=== PATIENT | female | born 1980 | race Caucasian/White ===

== ENCOUNTER 2016-03-16 14:57 | Emergency (ER) | payer MEDICAID, OTHER ==
[2016-03-16] MEDS ORDERED: ACETAMINOPHEN 325 MG TABLET PO ONE (15:14)
--- NOTE | 2016-03-16 15:14 | ER Document Report ---
ED Medical Screen (RME) - General Stated Complaint: KNEE PAIN Time seen by provider: 15:12 Mode of Arrival: Ambulatory Information source: Patient Notes: 36-year-old female presents to ED for left knee after tripping and falling this morning landing on her left knee. States she fell about a month ago on the same knee and the pain was still there. Last menstrual period 02/28/2016 I have greeted and performed a rapid initial assessment of this patient. A comprehensive ED assessment and evaluation of the patient, analysis of test results and completion of medical decision making process will be conducted by an additional ED providers. TRAVEL OUTSIDE OF THE [place] IN LAST 30 DAYS: No - Related Data Allergies/Adverse Reactions: amoxicillin trihydrate [From Augmentin] Allergy (Intermediate, Verified 15:13) Hives aspirin [Aspirin] Allergy (Intermediate, Verified 03/16/16 15:13) DOESN'T TAKE BC OF CROHN'S Potassium Clavulanate * [From Augmentin] Allergy (Intermediate, Verified 15:13) Hives sulfamethoxazole [From Septra] Allergy (Intermediate, Verified 03/16/16 15:13) NAUSEA,VOMITING, HIVES trimethoprim [From Septra] Allergy (Intermediate, Verified 03/16/16 15:13) NAUSEA, VOMITING, HIVES sertraline HCl [From Zoloft] Allergy (Verified 03/16/16 15:13) UNKNOWN POWDER IN GLOVES Adverse Reaction (Intermediate, Uncoded 03/16/16 15:13) RASH Past Medical History - Past Medical History Cardiac Medical History: Denies: Hx Coronary Artery Disease, Hx Heart Attack, Hx Hypertension Pulmonary Medical History: Reports: Hx Asthma - FLARE UPS IN WINTER, Hx Bronchitis - FLARE UPS IN WINTER, Hx Pneumonia Denies: Hx COPD Neurological Medical History: Reports: Hx Migraine. Denies: Hx Cerebrovascular Accident, Hx Seizures - QUESTIONABLE SZ AFTER OF SON IN 2012. Endocrine Medical History: Reports: Hx Hypothyroidism GI Medical History: Reports: Hx Crohn's Disease Musculoskeltal Medical History: Reports Hx Arthritis - OLIVER HANDS Psychiatric Medical History: Reports: Hx Anxiety Past Surgical History: Reports: Hx Appendectomy, Hx Orthopedic Surgery - rt shoulder, Hx Thyroid Surgery - Thyroidectomy. Denies: Hx Section - d&c - Immunizations Hx Diphtheria, Pertussis, Tetanus Vaccination: Yes - 2012
[2016-03-16] MEDS ORDERED: ACETAMINOPHEN 325 MG TABLET ONE (15:15)
[2016-03-16] MEDS ORDERED: LORAZEPAM INJ 2 MG/1 ML VIAL IV ONE (15:55)
[2016-03-16] MEDS ORDERED: NORMAL SALINE 1000 ML 1,000 ML IV ONE (15:55)
--- NOTE | 2016-03-16 15:56 | ER Document Report ---
ED General - General Chief Complaint: Knee Pain Stated Complaint: KNEE PAIN Mode of Arrival: Ambulatory Notes: 36-year-old female here with complaints of left knee pain that started after a fall earlier today. She has had one other fall one month ago. She cannot tell me how she ended up falling but advises that it "happened all of a sudden". She advises she does not know how she got on the floor. She denies slipping on anything. Her mother witnessed the event that the patient is unable to get in touch with the mother on the phone. She does have a history of generalized tonic-clonic seizures in 2013 and states that she was never placed on any antiepileptic medications for this as it was attributed to eclampsia. She has no prior history of drop-attack seizures. No recent medication changes. TRAVEL OUTSIDE OF THE [place] IN LAST 30 DAYS: No - Related Data Allergies/Adverse Reactions: amoxicillin trihydrate [From Augmentin] Allergy (Intermediate, Verified 15:13) Hives aspirin [Aspirin] Allergy (Intermediate, Verified 03/16/16 15:13) DOESN'T TAKE BC OF CROHN'S Potassium Clavulanate * [From Augmentin] Allergy (Intermediate, Verified 15:13) Hives sulfamethoxazole [From Septra] Allergy (Intermediate, Verified 03/16/16 15:13) NAUSEA,VOMITING, HIVES trimethoprim [From Septra] Allergy (Intermediate, Verified 03/16/16 15:13) NAUSEA, VOMITING, HIVES sertraline HCl [From Zoloft] Allergy (Verified 03/16/16 15:13) UNKNOWN POWDER IN GLOVES Adverse Reaction (Intermediate, Uncoded 03/16/16 15:13) RASH Past Medical History - General Information source: Patient - Social History Smoking Status: Current Every Day Smoker Chew tobacco use (# tins/day): No Frequency of alcohol use: None Drug Abuse: None Family History: Reviewed & Not Pertinent Patient has suicidal ideation: No Patient has homicidal ideation: No - Past Medical History Cardiac Medical History: Denies: Hx Coronary Artery Disease, Hx Heart Attack, Hx Hypertension Pulmonary Medical History: Reports: Hx Asthma - FLARE UPS IN WINTER, Hx Bronchitis - FLARE UPS IN WINTER, Hx Pneumonia Denies: Hx COPD Neurological Medical History: Reports: Hx Migraine. Denies: Hx Cerebrovascular Accident, Hx Seizures - QUESTIONABLE SZ AFTER OF SON IN 2012. Endocrine Medical History: Reports: Hx Hypothyroidism Renal/ Medical History: Denies: Hx Peritoneal Dialysis GI Medical History: Reports: Hx Crohn's Disease Musculoskeltal Medical History: Reports Hx Arthritis - OLIVER HANDS Psychiatric Medical History: Reports: Hx Anxiety Past Surgical History: Reports: Hx Appendectomy, Hx Orthopedic Surgery - rt shoulder, Hx Thyroid Surgery - Thyroidectomy. Denies: Hx Section - d&c - Immunizations Hx Diphtheria, Pertussis, Tetanus Vaccination: Yes - 2012 Review of Systems - Review of Systems Notes: See history of present illness for pertinent positive review of systems; otherwise all review of systems have been reviewed and are negative Physical Exam - Vital signs Vitals: Temp Pulse Resp BP Pulse Ox 98.0 F 78 19 126/74 H 97 03/16/16 15:13 03/16/16 15:13 03/16/16 15:13 03/16/16 15:13 03/16/16 15:13 - Notes Notes: PHYSICAL EXAMINATION: GENERAL: Well-appearing and in no acute distress. HEAD: Atraumatic, normocephalic. EYES: Pupils equal round and reactive to light, extraocular movements intact, sclera anicteric, conjunctiva are normal. ENT: nares patent, oropharynx clear without exudates. Moist mucous membranes. NECK: Normal range of motion, supple without lymphadenopathy LUNGS: CTAB and equal. No wheezes rales or rhonchi. HEART: Regular rate and rhythm without murmurs ABDOMEN: Soft, no tenderness. No guarding, no rebound EXTREMITIES: Normal range of motion, no pitting edema. No cyanosis. NEUROLOGICAL: Cranial nerves grossly intact. Normal sensory/motor exams. Normal steady gait without ataxia. PSYCH: Normal mood, normal affect. SKIN: Warm, Dry, normal turgor, no rashes or lesions noted Course - Re-evaluation Re-evalutation: 03/16/16 16:10 MEDICAL DECISION MAKING: Concern for drop attack seizures versus syncope versus mechanical fall Given the history, it is conceivable that the patient is having drop attack seizures We'll obtain workup including electrolytes and TSH Will also give a dose of Ativan to prevent any further possible seizures Patient understands and agrees to the plan of care 03/16/16 18:37 Results reviewed and are unremarkable I discussed results with patient Instructed her to follow up with neurology We'll send her home with prescription for tramadol for knee pain She understands and agrees to plan of care - Vital Signs Vital signs: Temp Pulse Resp BP Pulse Ox 98.0 F 78 19 126/74 H 97 03/16/16 15:13 03/16/16 15:13 03/16/16 15:13 03/16/16 15:13 03/16/16 15:13 - Laboratory Result Diagrams: 03/16/16 16:20 03/16/16 16:20 Laboratory results interpreted by me: 03/16/16 16:20 RDW 14.1 H Discharge - Discharge Clinical Impression: Fall, accidental Qualifiers: Encounter type: initial encounter Qualified Code(s): W19.XXXA - Unspecified fall, initial encounter Condition: Good Disposition: HOME, SELF-CARE Prescriptions: Tramadol HCl 50 mg PO BIDP PRN #14 tablet PRN Reason: Referrals: SHIKHA FREITAS MD [ACTIVE STAFF] - Follow up in 3-5 days ROBERTO BAILEY MD [Primary Care Provider] - Follow up in 3-5 days
[2016-03-16 16:42] LABS: ABSOLUTE EOSINOPHILS # (AUTO) 0.1 10^3/uL (0.0-0.6); ABSOLUTE MONOCYTES (AUTO) 0.4 10^3/uL (0.1-1.4); ABSOLUTE NEUT (AUTO) 3.5 10^3/uL (1.7-8.2); BASOPHILS % (AUTO) 0.7 % (0-2); HEMATOCRIT 39.8 % (36.0-47.0); HEMOGLOBIN 12.8 g/dL (12.0-15.5); HGB HCT DIFFERENCE -1.4; LYMPHOCYTES % (AUTO) 32.6 % (13-45); MEAN CORPUSCULAR HEMOGLOBIN 29.2 pg (27.0-33.4); MEAN CORPUSCULAR HGB CONC 32.1 g/dL (32.0-36.0); MEAN CORPUSCULAR VOLUME 91 fl (80-97); MONOCYTES % (AUTO) 7.3 % (3-13); RED BLOOD COUNT 4.37 10^6/uL (3.72-5.28); RED CELL DISTRIBUTION WIDTH 14.1 % (11.5-14.0); SEGMENTED NEUTROPHILS % (AUTO) 58.4 % (42-78); WHITE BLOOD COUNT 6.1 10^3/uL (4.0-10.5)
[2016-03-16 17:01] LABS: ALANINE AMINOTRANSFERASE 28 U/L (9-52); ALBUMIN 3.7 g/dL (3.5-5.0); ALKALINE PHOSPHATASE 81 U/L (38-126); ANION GAP 8 (5-19); ASPARTATE AMINO TRANSFERASE 32 U/L (14-36); BILIRUBIN,TOTAL 0.9 mg/dL (0.2-1.3); BLOOD UREA NITROGEN 14 mg/dL (7-20); CALCIUM 8.7 mg/dL (8.4-10.2); CARBON DIOXIDE 27 mmol/L (22-30); CHLORIDE 104 mmol/L (98-107); GLUCOSE 81 mg/dL (75-110); MAGNESIUM 1.9 mg/dL (1.6-2.3); PHOSPHORUS 2.6 mg/dL (2.5-4.5); SODIUM 138.7 mmol/L (137-145); TOTAL PROTEIN 6.8 g/dL (6.3-8.2)
[2016-03-16] MEDS ORDERED: TRAMADOL HCL 50 MG TABLET PO ONE (17:57)
[2016-03-16 18:51] VITALS: BP 128/75
== END 2016-03-16 18:52 | disposition home or self-care (01) ==
LOC: ER 14:57
DX: M25.562 Pain in left knee (principal); W19.XXXA Unspecified fall, initial encounter; F17.210 Nicotine dependence, cigarettes, uncomplicated
CPT/HCPCS: 99283; 96361; 96374; 36415; 83735; 84100; 84443; 85025; 81025; 80053; 73562; J3490; J2060; J7030

== ENCOUNTER 2016-05-29 10:29 | Emergency (ER) | payer SELFPAY ==
[2016-05-29] MEDS ORDERED: OXYCODONE-ACETAMINOPHEN 5-325 MG TABLET PO ONE (11:50)
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
[2016-05-29] MEDS ORDERED: KETOROLAC TROMETHAMINE 60 MG/2 ML SDV IM ONE (13:10)
[2016-05-29 13:33] VITALS: BP 98/62
== END 2016-05-29 13:30 | disposition home or self-care (01) ==
LOC: ER 10:29
DX: M54.31 Sciatica, right side (principal); M54.9 Dorsalgia, unspecified; M79.604 Pain in right leg; R05 Cough; F17.210 Nicotine dependence, cigarettes, uncomplicated
CPT/HCPCS: 99283; 96372; 72110; J1885

== ENCOUNTER 2016-08-03 14:25 | Emergency (ER) | payer MEDICAID ==
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
[2016-08-03] MEDS ORDERED: AZITHROMYCIN 250 MG TABLET PO ONE (17:44)
[2016-08-03] MEDS ORDERED: LIDOCAINE 1% INJ-PF (10 MG/ML) 30 ML SDV INJ ONE (17:44)
[2016-08-03] MEDS ORDERED: CEFTRIAXONE INJ 250 MG VIAL IM ONE (17:44)
[2016-08-03] MEDS ORDERED: EMTRICITABINE/TENOFOVIR 200-300 MG TAB (3 TAB/ER DISP) PO PRN (17:44)
[2016-08-03 18:08] LABS: APPEARANCE,URINE CLOUDY; BILIRUBIN,URINE NEGATIVE (NEGATIVE); GLUCOSE, URINE NEGATIVE (NEGATIVE); KETONES,URINE NEGATIVE (NEGATIVE); LEUKOCYTE ESTERASE,URINE SMALL (NEGATIVE); NITRITE,URINE NEGATIVE (NEGATIVE); PROTEIN,URINE NEGATIVE (NEGATIVE); URINE SPECIFIC GRAVITY 1.006; UROBILINOGEN,URINE NEGATIVE mg/dL (<2.0)
[2016-08-03 18:48] VITALS: BP 120/79
[2016-08-03 18:52] LABS: ADD HIVPANEL? NO; HIV (1 AND 2) ANTIBODY NEGATIVE (NEGATIVE)
[2016-08-03 21:05] LABS: CHLAM PCR NOT DETECTED (NOT DETECT)
== END 2016-08-03 18:49 | disposition home or self-care (01) ==
LOC: ER 14:25
DX: T74.21XA Adult sexual abuse, confirmed, initial encounter (principal); F17.200 Nicotine dependence, unspecified, uncomplicated; Y93.9 Activity, unspecified; Y92.810 Car as the place of occurrence of the external cause
CPT/HCPCS: 99285; 96372; 36415; 87210; 86592; 81001; 86701; 87491; 87591; 80074; Q0144; J3490; J0696

== ENCOUNTER 2016-11-07 15:52 | Emergency (ER) | payer MEDICAID ==
--- NOTE | 2016-11-07 17:15 | ER Document Report ---
ED Extremity Problem, Lower - General Chief Complaint: Foot Pain Stated Complaint: LEFT ANKLE PAIN Time Seen by Provider: 11/07/16 16:50 Mode of Arrival: Wheelchair Information source: Patient Notes: 36-year-old female presents to ED for complaint of left foot pain. She claims that she went to the inventory management specialist today and he gave HER-2 shots in her foot. She states she then drove home and went to bed. When she got up after laying down he stepped down and had excruciating pain in her whole left foot. She states the pain radiates to her ankle and thigh. She states she called the inventory management specialist and he told her to come to the emergency room to get x-ray to see if she had a broken foot. She states that the pain has been in her foot for about 2 months worse when she walks and that is why she went to the inventory management specialist. She states she has a history of RA. She states she has not had any previous x-rays to this foot. She states she does not know of any injuries. She states she is on tramadol that the inventory management specialist gives her for pain. TRAVEL OUTSIDE OF THE [place] IN LAST 30 DAYS: No - HPI Patient complains to provider of: Pain, Swelling Location: Foot Occurred: Other - chronic pain with worse pain today after getting shots in the foot Onset/Duration: Persistent, Worse Quality of pain: Sharp, Throbbing Severity: Severe Pain Level: 5 Recent injury: No Associated symptoms: Painful ambulation Exacerbated by: Nothing Relieved by: Nothing - Related Data Allergies/Adverse Reactions: amoxicillin trihydrate [From Augmentin] Allergy (Intermediate, Verified 14:39) Hives aspirin [Aspirin] Allergy (Intermediate, Verified 08/03/16 14:39) DOESN'T TAKE BC OF CROHN'S Potassium Clavulanate * [From Augmentin] Allergy (Intermediate, Verified 14:39) Hives sulfamethoxazole [From Septra] Allergy (Intermediate, Verified 08/03/16 14:39) NAUSEA,VOMITING, HIVES trimethoprim [From Septra] Allergy (Intermediate, Verified 08/03/16 14:39) NAUSEA, VOMITING, HIVES sertraline HCl [From Zoloft] Allergy (Verified 08/03/16 14:39) UNKNOWN POWDER IN GLOVES Adverse Reaction (Intermediate, Uncoded 08/03/16 14:39) RASH Past Medical History - General Information source: Patient - Social History Smoking Status: Current Every Day Smoker Cigarette use (# per day): Yes - 5 cig Chew tobacco use (# tins/day): No Smoking Education Provided: Yes - less than 1 min Frequency of alcohol use: None Drug Abuse: None Occupation: student Lives with: Family Family History: Arthritis, CAD, CVA, DM, Hyperlipidemia, Hypertension, Malignancy, Thyroid Disfunction Patient has suicidal ideation: No Patient has homicidal ideation: No - Past Medical History Cardiac Medical History: Reports: None Pulmonary Medical History: Reports: Hx Asthma - [employer] IN WINTER, Hx Bronchitis - [employer] IN WINTER, Hx Pneumonia EENT Medical History: Reports: None Neurological Medical History: Reports: Hx Migraine Endocrine Medical History: Reports: Hx Hypothyroidism Renal/ Medical History: Reports: None Malignancy Medical History: Reports: None GI Medical History: Reports: Hx Crohn's Disease Musculoskeltal Medical History: Reports Hx Arthritis - OLIVER HANDS Skin Medical History: Reports None Psychiatric Medical History: Reports: Hx Anxiety Traumatic Medical History: Reports: None Infectious Medical History: Reports: None Past Surgical History: Reports: Hx Appendectomy, Hx Orthopedic Surgery - rt shoulder, right knee surgery, Hx Thyroid Surgery - Thyroidectomy, Hx Tonsillectomy - Immunizations Immunizations up to date: Yes Hx Diphtheria, Pertussis, Tetanus Vaccination: Yes - 2012 Review of Systems - Review of Systems Constitutional: No symptoms reported EENT: No symptoms reported Cardiovascular: No symptoms reported Respiratory: No symptoms reported Gastrointestinal: No symptoms reported Genitourinary: No symptoms reported Female Genitourinary: No symptoms reported Musculoskeletal: Other - left foot pain radiating to ankle leg and thigh Skin: No symptoms reported Hematologic/Lymphatic: No symptoms reported Neurological/Psychological: No symptoms reported -: Yes All other systems reviewed and negative Physical Exam - Vital signs Vitals: Temp Pulse Resp BP Pulse Ox 98.2 F 77 18 120/91 H 98 11/07/16 15:54 11/07/16 15:54 11/07/16 15:54 11/07/16 15:54 11/07/16 15:54 Interpretation: Normal - General General appearance: Appears well, Alert - HEENT Head: Normocephalic, Atraumatic Eyes: Normal Pupils: PERRL - Respiratory Respiratory status: No respiratory distress Chest status: Nontender Breath sounds: Normal Chest palpation: Normal - Cardiovascular Rhythm: Regular Heart sounds: Normal auscultation Murmur: No - Abdominal Inspection: Normal Distension: No distension Bowel sounds: Normal Tenderness: Nontender Organomegaly: No organomegaly - Back Back: Normal, Nontender - Extremities General upper extremity: Normal inspection, Nontender, Normal color, Normal ROM , Normal temperature General lower extremity: Normal inspection, Normal color, Normal ROM, Normal temperature, Normal weight bearing. No: Manuel's sign Foot: Tender - radiating to ankle leg knee and thigh, Unable to bear weight. No : Abrasion, Deformity, Ecchymosis, Edema, Instability, Laceration, Metatarsal compress. pain, Nail injury, Navicular tenderness, No evidence of FB, Puncture wound, Tender 5th metatarsal - Neurological Neuro grossly intact: Yes Cognition: Normal Orientation: AAOx4 [place] Coma Scale Eye Opening: Spontaneous Umm Coma Scale Verbal: Oriented Umm Coma Scale Motor: Obeys Commands [place] Coma Scale Total: 15 Speech: Normal Motor strength normal: LUE, RUE, LLE, RLE Sensory: Normal - Psychological Associated symptoms: Normal affect, Normal mood - Skin Skin Temperature: Warm Skin Moisture: Dry Skin Color: Normal Course - Re-evaluation Re-evalutation: 11/07/16 22:21 X-rays discussed with patient. Written report of x-rays given to patient to follow-up with her primary doctor. Patient was supplied with crutches to walk. Patient is been being medicated by her primary doctor with tramadol. - Vital Signs Vital signs: Temp Pulse Resp BP Pulse Ox 98.4 F 78 20 128/96 H 99 11/07/16 18:43 11/07/16 18:43 11/07/16 18:43 11/07/16 18:43 11/07/16 18:43 - Diagnostic Test Radiology reviewed: Image reviewed, Reports reviewed Discharge - Discharge Clinical Impression: Chronic toe pain, left foot Condition: Stable Disposition: HOME, SELF-CARE Additional Instructions: Chronic Pain Control Stress, inactivity, and depression make pain more severe regardless of the cause of the pain. Stress and poor physical condition can cause pain such as headaches and backache. Relaxation: Rest in a quiet place with your eyes closed for 20 minutes twice daily. Concentrate on a pleasant image, or simply "feel" your breathing. Clear your mind. Stress management: Deal with your "stressors." Either take action, or eliminate the stressor from your life. Don't let things hang over you. Accept those things you can't change. Nutrition: Eat small, balanced meals -- don't skip, don't overeat. Meals should be high-carbohydrate, low-sugar, low-fat. Exercise: Exercise helps painful conditions and eases stress. Get 30 minutes of moderate exercise, five days a week. Do an activity that does not flare your pain. Precautions: Pain which continues to disrupt daily activities, or which changes in nature, requires a medical evaluation. Pain Clinic referral is available. We do not manage chronic pain in the Emergency Department. We will try to appropriately help you through an acute flare of your chronic painful condition , but for on-going chronic pain that does not improve, you will need to see your private doctor or painter decorator. We do not provide repeated medication management of chronic painful conditions. If you wish, we can provide the name of local pain management physicians. Arthritis Your symptoms are due to arthritis. Arthritis is an inflammation of the joints. There are many types -- osteoarthritis (due to "wear and tear"), auto- immmune arthritis (such as rheumatoid, lupus, Abe's, and others), and crystal -induced arthritis (such as gout and pseudogout). The physician's examination, combined with laboratory tests, will determine the cause of your arthritis. All types of arthritis are treated with antiinflammatory medications. Other medication may be required for special types of arthritis, or if your problem does not respond to the antiinflammatory medicine. Local warmth may be helpful. Move the involved joints through the full range of motion daily. Mild exercise is usually still possible for most persons with arthritis (ask your physician). Swimming provides good exercise without damaging the joints. Contact the physician if you are worsening in any way. USE OF CRUTCHES: The doctor has recommended that you not bear weight at this time. You will need to use crutches. Adjust the crutches so the tops come to about two inches under the armpit while you are standing upright. Use your hands -- not your armpits -- to support your weight. To get into a chair, support yourself with one crutch on the injured side. Hold the chair with the other hand, then lower yourself while putting all your weight on the good leg. Going up stairs is `good leg up, step up, then bring up crutches and bad leg.' Down stairs is `bad leg and crutches down, then bring good leg down.' If you develop numbness or swelling in an arm or hand, you are using the crutches incorrectly. Return if you are having any problems with the crutches. ICE & ELEVATION: Apply ice packs frequently against the painful area. Many different schedules are recommended, such as "20 minutes on, 20 minutes off" or "one hour ice, two hours rest." If you need to work, you may need to go longer between ice treatments. You should plan to have the area ice packed AT LEAST one- fourth of the time. The ice should be applied over the wrap, tape, or splint, or over a layer of cloth -- not directly against the skin. Some ice bags have a built-in cloth and can be put directly on the skin. Your injured part should be elevated as much as possible over the next 48 hours. Try to keep the injury above the level of the heart. Avoid use of the injured area. Elevation and rest will decrease the swelling. USE OF [id number] IBUPROFEN: Ibuprofen (Advil, Nuprin, Medipren, Motrin IB) is a medication for fever and pain control. In addition, it has anti- inflammatory effects which may be beneficial, especially in the treatment of injuries. It's best to take ibuprofen with food. Persons with ulcer disease or allergy to aspirin should notify their physician of this before taking ibuprofen. Ibuprofen can be given every four to six hours, for a total of four doses daily. Age Pain or fever dose Antiinflammatory dose 6-8 yr 200 mg (1 tab) 200 mg (1 tab) 9-11 yr 200 mg (1 tab) 200-400 mg (1-2 tab) 11-14 yr 200-400 mg (1-2 tab) 400 mg (2 tab) 15-adult 400 mg (2 tab) 600 mg (3 tab) FOLLOW-UP CARE: If you have been referred to a physician for follow-up care, call the physician s office for an appointment as you were instructed or within the next two days. If you experience worsening or a significant change in your symptoms, notify the physician immediately or return to the Emergency Department at any time for re-evaluation. Forms: Elevated Blood Pressure, Smoking Cessation Education Referrals: ROBERTO BAILEY MD [Primary Care Provider] - Follow up as needed
--- NOTE | 2016-11-07 17:40 | RADIOLOGY REPORT (SQ) ---
EXAM DESCRIPTION: ANKLE LEFT COMPLETE COMPLETED DATE/TIME: 11/07/2016 5:32 pm REASON FOR STUDY: pain left foot and ankle COMPARISON: None. NUMBER OF VIEWS: Three views. TECHNIQUE: AP, lateral, and oblique radiographic images acquired of the left ankle. LIMITATIONS: None. FINDINGS: MINERALIZATION: Normal. BONES: No acute fracture or dislocation. No worrisome bone lesions. JOINTS: No effusions. SOFT TISSUES: No soft tissue swelling. No foreign body. OTHER: No other significant finding. IMPRESSION: NEGATIVE STUDY OF THE LEFT ANKLE. NO RADIOGRAPHIC EVIDENCE OF ACUTE INJURY. TECHNICAL DOCUMENTATION: JOB ID: [id number] [employer]- All Rights Reserved
--- NOTE | 2016-11-07 17:40 | RADIOLOGY REPORT (SQ) ---
EXAM DESCRIPTION: FOOT LEFT COMPLETE COMPLETED DATE/TIME: 11/07/2016 5:32 pm REASON FOR STUDY: pain left foot and ankle COMPARISON: None. NUMBER OF VIEWS: Three views. TECHNIQUE: AP, lateral and oblique radiographic images acquired of the left foot. LIMITATIONS: None. FINDINGS: MINERALIZATION: Normal. BONES: No acute fracture or dislocation. No worrisome bone lesions. JOINTS: No effusions. SOFT TISSUES: No soft tissue swelling. No foreign body. OTHER: No other significant finding. IMPRESSION: NEGATIVE STUDY OF THE LEFT FOOT. NO RADIOGRAPHIC EVIDENCE OF ACUTE INJURY. TECHNICAL DOCUMENTATION: JOB ID: [id number] [employer]- All Rights Reserved
[2016-11-07 18:50] VITALS: BP 128/96
== END 2016-11-07 18:43 | disposition home or self-care (01) ==
LOC: ER 15:52
DX: M79.675 Pain in left toe(s) (principal); M25.572 Pain in left ankle and joints of left foot; M79.652 Pain in left thigh; M79.89 Other specified soft tissue disorders; F17.210 Nicotine dependence, cigarettes, uncomplicated
CPT/HCPCS: 99283

== ENCOUNTER 2017-01-08 07:54 | Emergency (ER) | payer MEDICAID ==
--- NOTE | 2017-01-08 08:58 | ER Document Report ---
ED Seizure - General Mode of Arrival: Ambulatory Information source: Patient <WHITLEY BREWER - Last Filed: 01/08/17 10:24> <SHIVANI BERNARD - Last Filed: 01/08/17 15:23> - General Chief Complaint: Seizure Stated Complaint: GENERAL WEAKNESS Time Seen by Provider: 01/08/17 08:19 Notes: Patient is a 36 year old female that presents to the emergency department today with complaints of a seizure that occurred prior to arrival. Patient states she has had multiple seizures in the past but has never been put on seizure meds. Patient is followed by Doctor Alirio but has not seen him in approximately x1.5 years. Patient also mentions having vaginal bleeding for 3 weeks and lower abdominal pain. (WHITLEY BREWER) - Related Data Allergies/Adverse Reactions: amoxicillin trihydrate [From Augmentin] Allergy (Intermediate, Verified 08:03) Hives aspirin [Aspirin] Allergy (Intermediate, Verified 01/08/17 08:03) DOESN'T TAKE BC OF CROHN'S Potassium Clavulanate * [From Augmentin] Allergy (Intermediate, Verified 08:03) Hives sulfamethoxazole [From Septra] Allergy (Intermediate, Verified 01/08/17 08:03) NAUSEA,VOMITING, HIVES trimethoprim [From Septra] Allergy (Intermediate, Verified 01/08/17 08:03) NAUSEA, VOMITING, HIVES sertraline HCl [From Zoloft] Allergy (Verified 01/08/17 08:03) UNKNOWN POWDER IN GLOVES Adverse Reaction (Intermediate, Uncoded 01/08/17 08:03) RASH Past Medical History - General Information source: Patient - Social History Smoking Status: Never Smoker Cigarette use (# per day): No Frequency of alcohol use: None Drug Abuse: None Lives with: Family Family History: Reviewed & Not Pertinent, Arthritis, CAD, CVA, DM, Hyperlipidemia, Hypertension, Malignancy, Thyroid Disfunction Patient has suicidal ideation: No Patient has homicidal ideation: No Pulmonary Medical History: Reports: Hx Asthma - [employer] IN WINTER, Hx Bronchitis - [employer] IN WINTER, Hx Pneumonia Neurological Medical History: Reports: Hx Migraine, Hx Seizures - ? Endocrine Medical History: Reports: Hx Hypothyroidism GI Medical History: Reports: Hx Crohn's Disease Musculoskeltal Medical History: Reports Hx Arthritis - OL[employer] HANDS Psychiatric Medical History: Reports: Hx Anxiety, Hx Depression Past Surgical History: Reports: Hx Appendectomy, Hx Orthopedic Surgery - rt shoulder, right knee surgery, Hx Thyroid Surgery - Thyroidectomy, Hx Tonsillectomy - Immunizations Immunizations up to date: Yes Hx Diphtheria, Pertussis, Tetanus Vaccination: Yes - 2012 <ROMÁN BREWERON - Last Filed: 01/08/17 10:24> Review of Systems - Review of Systems Constitutional: No symptoms reported EENT: No symptoms reported Cardiovascular: No symptoms reported Respiratory: No symptoms reported Gastrointestinal: See HPI, Abdominal pain Genitourinary: No symptoms reported Female Genitourinary: No symptoms reported Musculoskeletal: No symptoms reported Skin: No symptoms reported Hematologic/Lymphatic: No symptoms reported Neurological/Psychological: See HPI, Seizure -: Yes All other systems reviewed and negative <WHITLEY BREWER - Last Filed: 01/08/17 10:24> Physical Exam - Vital signs Interpretation: Normal - General General appearance: Appears well, Alert - HEENT Head: Normocephalic, Atraumatic Eyes: Normal Pupils: PERRL - Respiratory Respiratory status: No respiratory distress Chest status: Nontender Breath sounds: Normal Chest palpation: Normal - Cardiovascular Rhythm: Regular Heart sounds: Normal auscultation Murmur: No - Abdominal Inspection: Normal Distension: No distension Bowel sounds: Normal Tenderness: Nontender Organomegaly: No organomegaly - Back Back: Normal, Nontender - Extremities General upper extremity: Normal inspection, Nontender, Normal color, Normal ROM , Normal temperature General lower extremity: Normal inspection, Nontender, Normal color, Normal ROM , Normal temperature, Normal weight bearing. No: Manuel's sign - Neurological Neuro grossly intact: Yes Cognition: Normal Orientation: AAOx4 Umm Coma Scale Eye Opening: Spontaneous Umm Coma Scale Verbal: Oriented Umm Coma Scale Motor: Obeys Commands Umm Coma Scale Total: 15 Speech: Normal Motor strength normal: LUE, RUE, LLE, RLE Sensory: Normal - Psychological Associated symptoms: Normal affect, Normal mood - Skin Skin Temperature: Warm Skin Moisture: Dry Skin Color: Normal <SHIVANI BERNARD - Last Filed: 01/08/17 15:23> - Vital signs Vitals: Temp Pulse Resp BP Pulse Ox 97.6 F 84 18 108/65 100 01/08/17 08:01 01/08/17 08:01 01/08/17 08:01 01/08/17 08:01 01/08/17 08:01 Course - Laboratory Result Diagrams: 01/08/17 08:48 01/08/17 08:48 <WHITLEY BREWER - Last Filed: 01/08/17 10:24> - Laboratory Result Diagrams: 01/08/17 08:48 01/08/17 08:48 <SHIVANI BERNARD - Last Filed: 01/08/17 15:23> - Re-evaluation Re-evalutation: 01/08/17 Patient with no acute findings on blood work or MRI of head. No evidence for MS. Patient has recently started weaning off of Xanax. It is possible that this is masking her seizures and now she is having them or that withdrawal is causing seizures. Patient is instructed to follow-up with her doctor and also her neurologist regarding outpatient EEG and workup of seizure disorder. Patient does have Xanax at home which she is still taking. Stable for discharge. Understands and agrees with plan. Return if worsening or concerning symptoms. (SHIVANI BERNARD) - Vital Signs Vital signs: Temp Pulse Resp BP Pulse Ox 97.9 F 60 20 116/65 100 01/08/17 13:13 01/08/17 13:13 01/08/17 13:13 01/08/17 13:13 01/08/17 13:13 - Laboratory Laboratory results interpreted by me: 01/08/17 01/08/17 08:38 08:48 Glucose 52 L Direct Bilirubin 0.5 H Urine Ketones TRACE H Urine Blood SMALL H Urine Ascorbic Acid 40 H Discharge <WHITLEY BREWER - Last Filed: 01/08/17 10:24> <SHIVANI BERNARD - Last Filed: 01/08/17 15:23> - Discharge Clinical Impression: Seizure Condition: Stable Disposition: HOME, SELF-CARE Instructions: Seizure, Known Epileptic ([facility]) Additional Instructions: Please follow-up with your doctor this week regarding the seizure activity. It could be from weaning down off of the Xanax or you could have an underlying seizure disorder that is being masked by Xanax. Referrals: SHIKHA FREITAS MD [ACTIVE STAFF] - Follow up in 3-5 days Scribe Attestation: 01/08/17 15:23 I personally performed the services described in the documentation, reviewed and edited the documentation which was dictated to the scribe in my presence, and it accurately records my words and actions. (SHIVANI BERNARD) Scribe Documentation - Scribe Written by Damion:: Damion Núñez, 01/08/2017 1029 acting as scribe for :: Ethan <WHITLEY BREWER - Last Filed: 01/08/17 10:24>
[2017-01-08 09:01] LABS: ABSOLUTE BASOPHILS # (AUTO) 0.1 10^3/uL (0.0-0.2); ABSOLUTE EOSINOPHILS # (AUTO) 0.1 10^3/uL (0.0-0.6); ABSOLUTE LYMPHOCYTES (AUTO) 2.3 10^3/uL (0.5-4.7); ABSOLUTE MONOCYTES (AUTO) 0.5 10^3/uL (0.1-1.4); ABSOLUTE NEUT (AUTO) 4.2 10^3/uL (1.7-8.2); EOSINOPHILS % (AUTO) 0.9 % (0-6); HEMATOCRIT 42.6 % (36.0-47.0); HEMOGLOBIN 14.6 g/dL (12.0-15.5); HGB HCT DIFFERENCE 1.2; MEAN CORPUSCULAR HEMOGLOBIN 32.5 pg (27.0-33.4); MEAN CORPUSCULAR HGB CONC 34.2 g/dL (32.0-36.0); MEAN CORPUSCULAR VOLUME 95 fl (80-97); MONOCYTES % (AUTO) 7.3 % (3-13); RED BLOOD COUNT 4.49 10^6/uL (3.72-5.28); SEGMENTED NEUTROPHILS % (AUTO) 58.8 % (42-78); WHITE BLOOD COUNT 7.2 10^3/uL (4.0-10.5)
[2017-01-08 09:33] LABS: ALANINE AMINOTRANSFERASE 23 U/L (9-52); ALBUMIN 4.2 g/dL (3.5-5.0); ALKALINE PHOSPHATASE 61 U/L (38-126); ANION GAP 11 (5-19); ASPARTATE AMINO TRANSFERASE 27 U/L (14-36); BILIRUBIN,DIRECT 0.5 mg/dL (0.0-0.4); BILIRUBIN,TOTAL 1.1 mg/dL (0.2-1.3); BLOOD UREA NITROGEN 15 mg/dL (7-20); CALCIUM 8.9 mg/dL (8.4-10.2); CARBON DIOXIDE 26 mmol/L (22-30); CHLORIDE 105 mmol/L (98-107); CREATININE RESULT 0.75 mg/dL (0.52-1.25); GLUCOSE 52 mg/dL (75-110); POTASSIUM 4.1 mmol/L (3.6-5.0); SODIUM 142.1 mmol/L (137-145); TOTAL PROTEIN 6.9 g/dL (6.3-8.2)
[2017-01-08 09:45] LABS: APPEARANCE,URINE SLIGHTLY-CLOUDY; BILIRUBIN,URINE NEGATIVE (NEGATIVE); GLUCOSE, URINE NEGATIVE (NEGATIVE); KETONES,URINE TRACE mg/dL (NEGATIVE); LEUKOCYTE ESTERASE,URINE NEGATIVE (NEGATIVE); NITRITE,URINE NEGATIVE (NEGATIVE); PROTEIN,URINE NEGATIVE (NEGATIVE); URINE SPECIFIC GRAVITY 1.016; UROBILINOGEN,URINE NEGATIVE mg/dL (<2.0)
[2017-01-08] MEDS ORDERED: LORAZEPAM 1 MG TABLET PO ONE (10:03)
[2017-01-08] MEDS ORDERED: KETOROLAC TROMETHAMINE INJ/PF 30 MG/1 ML SDV IV ONE (10:04)
[2017-01-08 10:32] LABS: URINE BARBITURATES SCREEN NEGATIVE; URINE METHADONE SCREEN NEGATIVE; URINE OPIATES LOW NEGATIVE; URINE PHENCYCLIDINE SCREEN NEGATIVE
--- NOTE | 2017-01-08 11:22 | RADIOLOGY REPORT (SQ) ---
EXAM DESCRIPTION: MRI HEAD WITHOUT COMPLETED DATE/TIME: 01/08/2017 11:04 am REASON FOR STUDY: evaluate for MS COMPARISON: January 2015 TECHNIQUE: Multiplanar imaging includes non-contrasted T1, T2, FLAIR, and diffusion with ADC map seq uences. Images stored on PACS. LIMITATIONS: None. FINDINGS: ANATOMY: No anomalies. Normal vascular flow voids. Pituitary fossa normal. CSF SPACES: Normal in size and contour. No hemorrhage. CEREBRUM: Sulci and gyri normal in size and contour. Normal white matter signal on FLAIR imaging. No evidence of hemorrhage, mass, or extraaxial fluid collection. POSTERIOR FOSSA: No signal alteration. No hemorrhage. No edema, masses or mass effect. Internal robi tory canals, cerebello-pontine angles, mastoids normal. DIFFUSION IMAGING: Negative for acute or sub-acute infarction. ORBITS: No masses. Globes normal. PARANASAL SINUSES: No fluid levels. Mucosa normal. OTHER: No other significant finding. IMPRESSION: NORMAL MRI OF THE BRAIN WITHOUT INTRAVENOUS GADOLINIUM CONTRAST. EVIDENCE OF ACUTE STROKE: NO. TECHNICAL DOCUMENTATION: JOB ID: [id number] [employer]- All Rights Reserved
[2017-01-08 13:14] VITALS: BP 116/65
== END 2017-01-08 13:13 | disposition home or self-care (01) ==
LOC: ER 07:54
DX: R56.9 Unspecified convulsions (principal); N93.9 Abnormal uterine and vaginal bleeding, unspecified; R10.30 Lower abdominal pain, unspecified; J45.909 Unspecified asthma, uncomplicated; F41.9 Anxiety disorder, unspecified; Z79.899 Other long term (current) drug therapy; Z88.0 Allergy status to penicillin; Z88.6 Allergy status to analgesic agent; Z88.1 Allergy status to other antibiotic agents; Z88.8 Allergy status to other drugs, medicaments and biological substances
CPT/HCPCS: 99284; 96374; 36415; 84702; 85025; 80053; 81001; 80307; 70551; J1885

== ENCOUNTER 2017-06-29 14:03 | Emergency (ER) | payer MEDICAID ==
--- NOTE | 2017-06-29 14:41 | ER Document Report ---
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 Endocrine Medical History: Reports: Hx Hypothyroidism Renal/ Medical History: Denies: Hx Peritoneal Dialysis GI Medical History: Reports: Hx Crohn's Disease Musculoskeltal Medical History: Reports Hx Arthritis - [employer] HANDS Psychiatric Medical History: Reports: Hx Anxiety, Hx Depression Past Surgical History: Reports: Hx Appendectomy, Hx Orthopedic Surgery - rt shoulder, right knee surgery, Hx Thyroid Surgery - Thyroidectomy, Hx Tonsillectomy - Immunizations Immunizations up to date: Yes Hx Diphtheria, Pertussis, Tetanus Vaccination: Yes - 2012 Vertical Provider Document - INFECTION CONTROL TRAVEL OUTSIDE OF THE [place] IN LAST 30 DAYS: No Course - Vital Signs Vital signs: Temp Pulse Resp BP Pulse Ox 98.6 F 94 16 117/64 98 06/29/17 14:07 06/29/17 14:07 06/29/17 14:07 06/29/17 14:07 06/29/17 14:07
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
--- NOTE | 2017-06-29 14:51 | ER Document Report ---
ED Medical Screen (RME) - General Chief Complaint: Back Pain Stated Complaint: BACK PAIN Time Seen by Provider: 06/29/17 14:41 Mode of Arrival: Wheelchair Information source: Patient Notes: 37 yo female lifted son 2 weeks ago, felt pop in instant sharp pain lumbar spine. Getting worse since, yesterday both legs and genital area got numb. Can' t feel urge to urinate. Has had back MR in past, doesn't remember results. No chronic back pain, was told not to take any NSAIDS due to arthritis medication given. TRAVEL OUTSIDE OF THE [place] IN LAST 30 DAYS: No - Related Data Allergies/Adverse Reactions: amoxicillin trihydrate [From Augmentin] Allergy (Intermediate, Verified 14:04) Hives aspirin [Aspirin] Allergy (Intermediate, Verified 06/29/17 14:04) DOESN'T TAKE BC OF CROHN'S Potassium Clavulanate * [From Augmentin] Allergy (Intermediate, Verified 14:04) Hives sulfamethoxazole [From Septra] Allergy (Intermediate, Verified 06/29/17 14:04) NAUSEA,VOMITING, HIVES trimethoprim [From Septra] Allergy (Intermediate, Verified 06/29/17 14:04) NAUSEA, VOMITING, HIVES sertraline HCl [From Zoloft] Allergy (Verified 06/29/17 14:04) UNKNOWN POWDER IN GLOVES Adverse Reaction (Intermediate, Uncoded 06/29/17 14:04) RASH Past Medical History Pulmonary Medical History: Reports: Hx Asthma - [employer] IN WINTER, Hx Bronchitis - [employer] UPS IN WINTER, Hx Pneumonia Neurological Medical History: Reports: Hx Migraine, Hx Seizures - ? Endocrine Medical History: Reports: Hx Hypothyroidism Renal/ Medical History: Denies: Hx Peritoneal Dialysis GI Medical History: Reports: Hx Crohn's Disease Musculoskeltal Medical History: Reports Hx Arthritis - OLIVER HANDS Psychiatric Medical History: Reports: Hx Anxiety, Hx Depression Past Surgical History: Reports: Hx Appendectomy, Hx Orthopedic Surgery - rt shoulder, right knee surgery, Hx Thyroid Surgery - Thyroidectomy, Hx Tonsillectomy - Immunizations Immunizations up to date: Yes Hx Diphtheria, Pertussis, Tetanus Vaccination: Yes - 2012 Physical Exam - Vital signs Vitals: Temp Pulse Resp BP Pulse Ox 98.6 F 94 16 117/64 98 06/29/17 14:07 06/29/17 14:07 06/29/17 14:07 06/29/17 14:07 06/29/17 14:07 Course - Vital Signs Vital signs: Temp Pulse Resp BP Pulse Ox 98.6 F 94 16 117/64 98 06/29/17 14:07 06/29/17 14:07 06/29/17 14:07 06/29/17 14:07 06/29/17 14:07
[2017-06-29 16:08] LABS: APPEARANCE,URINE CLEAR; BILIRUBIN,URINE NEGATIVE (NEGATIVE); COLOR,URINE YELLOW; GLUCOSE, URINE NEGATIVE (NEGATIVE); KETONES,URINE NEGATIVE (NEGATIVE); LEUKOCYTE ESTERASE,URINE NEGATIVE (NEGATIVE); NITRITE,URINE NEGATIVE (NEGATIVE); PROTEIN,URINE NEGATIVE (NEGATIVE); UROBILINOGEN,URINE NEGATIVE mg/dL (<2.0)
--- NOTE | 2017-06-29 16:30 | RADIOLOGY REPORT (SQ) ---
EXAM DESCRIPTION: MRI LUMBAR SPINE WITHOUT COMPLETED DATE/TIME: 06/29/2017 4:14 pm REASON FOR STUDY: MR lumbar spine COMPARISON: None. TECHNIQUE: Sagittal and Axial imaging includes T1, T2, STIR and gradient echo sequences. Coronal T2/ HASTE imaging. LIMITATIONS: None. FINDINGS: VISUALIZED UPPER ABDOMEN: Limited evaluation. No acute or suspicious findings suggested. SEGMENTATION: No transitional anatomy. The lowest well-developed disc space is labeled L5-S1. ALIGNMENT: Anatomic. VERTEBRAE: Intact. BONE MARROW: Normal. No marrow replacement or reactive changes. DISC SIGNAL: Generally maintained disc heights. Detailed disc findings at L5-S1, below. POSTERIOR ELEMENTS: No pars defect. No bulky facet overgrowth. HARDWARE: None in the spine. CORD AND CONUS: Normal in size and signal intensity. Conus at the appropriate level. SOFT TISSUES: No aortic aneurysm seen. No bulky retroperitoneal adenopathy or mass. No paraspinal mas s or fluid. L1-L2: No significant spinal stenosis or exit foraminal stenosis. L2-L3: No significant spinal stenosis or exit foraminal stenosis. L3-L4: No significant spinal stenosis or exit foraminal stenosis. L4-L5: No significant spinal stenosis or exit foraminal stenosis. L5-S1: Small right paracentral focal disc hernia, protrusion contacts the right S1 nerve root without displacement. LOWER THORACIC: Incompletely imaged. No stenosis seen. SACRUM: Visualized upper sacrum intact. OTHER: No other significant findings. IMPRESSION: 1. Small focal disc protrusion contacting the right S1 nerve root without mass effect. 2. Otherwise unremarkable MRI of the lumbar spine. No significant spinal stenosis or spinal malalign ment. TECHNICAL DOCUMENTATION: JOB ID: [id number] [employer]- All Rights Reserved Reading location - IP/workstation name: [email or web address]
[2017-06-29] MEDS ORDERED: KETOROLAC TROMETHAMINE 60 MG/2 ML SDV IM ONE (16:41)
[2017-06-29 18:45] VITALS: BP 124/71
== END 2017-06-29 18:57 | disposition home or self-care (01) ==
LOC: ER 14:03
DX: M51.27 Other intervertebral disc displacement, lumbosacral region (principal); G89.29 Other chronic pain; R20.0 Anesthesia of skin; K50.90 Crohn's disease, unspecified, without complications; J45.909 Unspecified asthma, uncomplicated
CPT/HCPCS: 99284; 96372; 81001; 72148; J1885

== ENCOUNTER 2018-02-20 16:35 | Emergency (ER) | payer MEDICAID ==
--- NOTE | 2018-02-20 17:47 | ER Document Report ---
HPI - HPI Patient complains to provider of: cough Time Seen by Provider: 02/20/18 17:47 Onset: Last week Onset/Duration: Persistent Quality of pain: Achy Severity: Severe Pain Level: 5 Context: Patient presents emergency department cough for 1 week. Also complains of body aches and sinus pain. Reports she has had a fever of 103. Last time she took Tylenol was this morning. Temperature is 98.8. Patient talking in full sentences without distress. Denies vomiting but reports diarrhea all day yesterday. Patient is able to drink fluids but reports she is unable to eat. Associated Symptoms: Body/muscle aches, Productive cough Exacerbated by: Denies Relieved by: Denies Similar symptoms previously: No Recently seen / treated by doctor: No - REPRODUCTIVE Reproductive: DENIES: : Past Medical History - General Information source: Patient Last Menstrual Period: just finished - Social History Smoking Status: Current Every Day Smoker Cigarette use (# per day): Yes Smoking Education Provided: Yes Frequency of alcohol use: None Drug Abuse: None Family History: Reviewed & Not Pertinent, Arthritis, CAD, CVA, DM, Hyperlipidemia, Hypertension, Malignancy, Thyroid Disfunction Patient has suicidal ideation: No Patient has homicidal ideation: No Pulmonary Medical History: Reports: Hx Asthma - [employer] IN WINTER, Hx Bronchitis - FL[employer] IN WINTER, Hx Pneumonia Neurological Medical History: Reports: Hx Migraine, Hx Seizures - ? Endocrine Medical History: Reports: Hx Hypothyroidism Renal/ Medical History: Denies: Hx Peritoneal Dialysis GI Medical History: Reports: Hx Crohn's Disease, Hx Gastroesophageal Reflux Disease Musculoskeletal Medical History: Reports Hx Arthritis - OLIVER HANDS, Reports Hx Fibromyalgia Psychiatric Medical History: Reports: Hx Anxiety, Hx Depression Past Surgical History: Reports: Hx Appendectomy, Hx Orthopedic Surgery - rt shou lder, right knee surgery, Hx Thyroid Surgery - Thyroidectomy, Hx Tonsillectomy - Immunizations Immunizations up to date: Yes Hx Diphtheria, Pertussis, Tetanus Vaccination: Yes - 2012 Vertical Provider Document - CONSTITUTIONAL Agree With Documented VS: Yes Exam Limitations: No Limitations General Appearance: No Apparent Distress - Nontoxic looking - INFECTION CONTROL TRAVEL OUTSIDE OF THE [place] IN LAST 30 DAYS: No - HEENT HEENT: Atraumatic, Normocephalic. negative: Conjuctival Injection, Pharyngeal Exudate, Pharyngeal Erythema, Tympanic Membrane Red, Tympanic Membrane Bulging - NECK Neck: Normal Inspection, Supple. negative: Lymphadenopathy-Left, Lymphadenopathy-Right - RESPIRATORY Respiratory: No Respiratory Distress, Wheezing - CARDIOVASCULAR Cardiovascular: Regular Rate, Regular Rhythm - GI/ABDOMEN Gastrointestinal: Abdomen Soft, Abdomen Non-Tender - BACK Back: Normal Inspection - MUSCULOSKELETAL/EXTREMETIES Musculoskeletal/Extremeties: MAEW, FROM - NEURO Level of Consciousness: Awake, Alert, Appropriate Motor/Sensory: No Motor Deficit - DERM Integumentary: Warm, Dry, No Rash Course - Re-evaluation Re-evalutation: 02/20/18 18:12 pt instructed on pending x-ray neb treatment Tylenol. She verbalized understanding. 02/20/18 19:26 Patient reports she feels better. Has been drinking p.o. fluids. She was instructed on negative x-ray. Instructed on steroids inhaler and the importance of quit smoking. She verbalized understanding to all instructions. - Vital Signs Vital signs: Temp Pulse Resp BP Pulse Ox 98.8 F 97 18 117/67 98 02/20/18 16:46 02/20/18 16:46 02/20/18 16:46 02/20/18 16:46 02/20/18 16:46 - Diagnostic Test Radiology reviewed: Image reviewed, Reports reviewed - EXAM DESCRIPTION: CHEST 2 VIEWS COMPLETED DATE/TIME: 02/20/2018 7:02 pm REASON FOR STUDY: cough, fever COMPARISON: 08/25/2015 EXAM PARAMETERS: NUMBER OF VIEWS: two views TECHNIQUE: Digital Frontal and Lateral radiographic views of the chest acquired. RADIATION DOSE: NA LIMITATIONS: none FINDINGS: LUNGS AND PLEURA: No opacities, masses or pneumothorax. No pleural effusion. MEDIASTINUM AND HILAR STRUCTURES: No masses or contour abnormalities. HEART AND VASCULAR STRUCTURES: Heart normal size. No evidence for failure. BONES: No acute findings. HARDWARE: None in the chest. OTHER: No other significant finding. IMPRESSION: NO ACUTE RADIOGRAPHIC FINDING IN THE CHEST. Discharge - Discharge Clinical Impression: Cough, Sinus pain Condition: Stable Disposition: HOME, SELF-CARE Instructions: Inhaled Bronchodilators ([facility]), Steroid Medication Additional Instructions: *You have been evaluated for cold symptoms today, cough, sinus pain *Your chest x-ray was negative for pneumonia *Increase fluid intake as discussed *Take medication as prescribed *Use inhaler as prescribed Quit Smoking *Monitor your temperature, take Tylenol as indicated *Follow up with a primary care provider in 3-5 days *Return to ED for worsening condition, changes, needs Prescriptions: Guaifenesin/Dextromethorphan [Robitussin Cough-Chest Dm Liq] 20 ml PO QID #1 bottle Prednisone [Deltasone 10 mg Tablet] 10 mg PO ASDIR PRN #15 tablet PRN Reason: Forms: Smoking Cessation Education
[2018-02-20] MEDS ORDERED: PREDNISONE 20 MG TABLET PO ONE (18:08)
[2018-02-20] MEDS ORDERED: IPRATROPIUM/ALBUTEROL 0.5-2.5 MG/3 ML AMPUL NEB ONE (18:08)
[2018-02-20] MEDS ORDERED: ACETAMINOPHEN 325 MG TABLET PO ONE (18:09)
--- NOTE | 2018-02-20 19:09 | RADIOLOGY REPORT (SQ) ---
EXAM DESCRIPTION: CHEST 2 VIEWS COMPLETED DATE/TIME: 02/20/2018 7:02 pm REASON FOR STUDY: cough, fever COMPARISON: 08/25/2015 EXAM PARAMETERS: NUMBER OF VIEWS: two views TECHNIQUE: Digital Frontal and Lateral radiographic views of the chest acquired. RADIATION DOSE: NA LIMITATIONS: none FINDINGS: LUNGS AND PLEURA: No opacities, masses or pneumothorax. No pleural effusion. MEDIASTINUM AND HILAR STRUCTURES: No masses or contour abnormalities. HEART AND VASCULAR STRUCTURES: Heart normal size. No evidence for failure. BONES: No acute findings. HARDWARE: None in the chest. OTHER: No other significant finding. IMPRESSION: NO ACUTE RADIOGRAPHIC FINDING IN THE CHEST. TECHNICAL DOCUMENTATION: JOB ID: [id number] [employer]- All Rights Reserved Reading location - IP/workstation name: [email or web address]
[2018-02-20] MEDS ORDERED: ALBUTEROL SULFATE HFA (90 MCG/PUFF) 8 GM MDI (1 MDI/ER DISP) IH ONE (19:17)
[2018-02-20 19:42] VITALS: BP 137/79
== END 2018-02-20 19:40 | disposition home or self-care (01) ==
LOC: ER 16:35
DX: R05 Cough (principal); R09.89 Other specified symptoms and signs involving the circulatory and respiratory systems; M79.10 Myalgia, unspecified site; F17.210 Nicotine dependence, cigarettes, uncomplicated; J45.909 Unspecified asthma, uncomplicated
CPT/HCPCS: 94640; 99283; 71046; J3490 ×2; J7512; J7620

== ENCOUNTER 2018-05-08 17:36 | Emergency (ER) | payer MEDICAID ==
[2018-05-08] MEDS ORDERED: NORMAL SALINE 1000 ML 1,000 ML IV ONE ×2 (20:02→23:45)
[2018-05-08] MEDS ORDERED: METOCLOPRAMIDE HCL INJ/PF 10 MG/2 ML SDV IV ONE ×2 (20:02→23:45)
[2018-05-08] MEDS ORDERED: FENTANYL CITRATE INJ/PF 100 MCG/2 ML AMPUL IV ONE ×2 (20:02→23:45)
--- NOTE | 2018-05-08 20:06 | ER Document Report ---
ED Medical Screen (RME) - General Chief Complaint: Other Stated Complaint: ABDOMINAL PAIN Time Seen by Provider: 05/08/18 19:55 TRAVEL OUTSIDE OF THE [place] IN LAST 30 DAYS: No - HPI Notes: 05/08/18 20:04 Patient complained of stool leaking out of her vagina since Saturday. She has history of Crohn's disease. She is also complaining of generalized abdominal pain. Physical exam is unremarkable except mild tenderness to palpation in the abdomen. The pelvic exam is pending at this time. - Related Data Allergies/Adverse Reactions: amoxicillin trihydrate [From Augmentin] Allergy (Intermediate, Verified 05/08/18 17:51) Hives aspirin [Aspirin] Allergy (Intermediate, Verified 05/08/18 17:51) DOESN'T TAKE BC OF CROHN'S Potassium Clavulanate * [From Augmentin] Allergy (Intermediate, Verified 05/08/18 17:51) Hives sulfamethoxazole [From Septra] Allergy (Intermediate, Verified 05/08/18 17:51) NAUSEA,VOMITING, HIVES trimethoprim [From Septra] Allergy (Intermediate, Verified 05/08/18 17:51) NAUSEA, VOMITING, HIVES sertraline HCl [From Zoloft] Allergy (Verified 05/08/18 17:51) UNKNOWN POWDER IN GLOVES Adverse Reaction (Intermediate, Uncoded 06/29/17 14:04) RASH Past Medical History Pulmonary Medical History: Reports: Hx Asthma - FL[employer] UPS IN WINTER, Hx Bronchitis - FLARE UPS IN WINTER, Hx Pneumonia Neurological Medical History: Reports: Hx Migraine, Hx Seizures - ? Endocrine Medical History: Reports: Hx Hypothyroidism Renal/ Medical History: Denies: Hx Peritoneal Dialysis GI Medical History: Reports: Hx Crohn's Disease, Hx Gastroesophageal Reflux Disease Musculoskeltal Medical History: Reports Hx Arthritis - OLIVER HANDS, Reports Hx Fibromyalgia Psychiatric Medical History: Reports: Hx Anxiety, Hx Depression Past Surgical History: Reports: Hx Appendectomy, Hx Orthopedic Surgery - rt shoulder, right knee surgery, Hx Thyroid Surgery - Thyroidectomy, Hx Tonsillectomy - Immunizations Immunizations up to date: Yes Hx Diphtheria, Pertussis, Tetanus Vaccination: Yes - 2012
[2018-05-08 21:05] LABS: ABSOLUTE EOSINOPHILS # (AUTO) 0.1 10^3/uL (0.0-0.6); ABSOLUTE LYMPHOCYTES (AUTO) 2.9 10^3/uL (0.5-4.7); ABSOLUTE MONOCYTES (AUTO) 0.5 10^3/uL (0.1-1.4); ABSOLUTE NEUT (AUTO) 1.6 10^3/uL (1.7-8.2); BASOPHILS % (AUTO) 0.7 % (0-2); HEMATOCRIT 42.8 % (36.0-47.0); HEMOGLOBIN 14.8 g/dL (12.0-15.5); LYMPHOCYTES % (AUTO) 56.6 % (13-45); MEAN CORPUSCULAR HEMOGLOBIN 33.8 pg (27.0-33.4); MEAN CORPUSCULAR HGB CONC 34.5 g/dL (32.0-36.0); MEAN CORPUSCULAR VOLUME 98 fl (80-97); MONOCYTES % (AUTO) 9.8 % (3-13); PLATELET COUNT 199 10^3/uL (150-450); RED BLOOD COUNT 4.38 10^6/uL (3.72-5.28); RED CELL DISTRIBUTION WIDTH 13.6 % (11.5-14.0); SEGMENTED NEUTROPHILS % (AUTO) 30.9 % (42-78); TOTAL CELLS COUNTED % (AUTO) 100 %; WHITE BLOOD COUNT 5.2 10^3/uL (4.0-10.5)
[2018-05-08 21:15] LABS: AMORPHOUS SEDIMENT,URINE TRACE /HPF; APPEARANCE,URINE CLOUDY; BILIRUBIN,URINE NEGATIVE (NEGATIVE); COLOR,URINE YELLOW; GLUCOSE, URINE NEGATIVE (NEGATIVE); KETONES,URINE NEGATIVE (NEGATIVE); LEUKOCYTE ESTERASE,URINE LARGE (NEGATIVE); NITRITE,URINE NEGATIVE (NEGATIVE); PROTEIN,URINE NEGATIVE (NEGATIVE); URINE SPECIFIC GRAVITY 1.017
[2018-05-08 21:25] LABS: ALANINE AMINOTRANSFERASE 41 U/L (9-52); ALBUMIN 4.6 g/dL (3.5-5.0); ALKALINE PHOSPHATASE 36 U/L (38-126); ANION GAP 10 (5-19); ASPARTATE AMINO TRANSFERASE 29 U/L (14-36); BILIRUBIN,DIRECT 0.1 mg/dL (0.0-0.4); BILIRUBIN,TOTAL 0.6 mg/dL (0.2-1.3); BLOOD UREA NITROGEN 16 mg/dL (7-20); CALCIUM 9.5 mg/dL (8.4-10.2); CARBON DIOXIDE 23 mmol/L (22-30); CHLORIDE 108 mmol/L (98-107); GLUCOSE 86 mg/dL (75-110); POTASSIUM 3.7 mmol/L (3.6-5.0); SODIUM 141.1 mmol/L (137-145); TOTAL PROTEIN 7.1 g/dL (6.3-8.2)
--- NOTE | 2018-05-08 23:43 | RADIOLOGY REPORT (SQ) ---
CLINICAL HISTORY: With rectal contrast to evaluate for fistula. COMPARISON: None. TECHNIQUE: CT ABDOMEN PELVIS WITH IV CONTRAST on 05/08/2018 8:03 PM CDT This exam was performed according to our departmental dose-optimization program, which includes automated exposure control, adjustment of the mA and/or kV according to patient size and/or use of iterative reconstruction technique. FINDINGS: Lower lungs are clear. Abdomen: The liver is normal in appearance. There is no biliary dilatation. Gallbladder is normal in appearance. The pancreas and spleen are normal in appearance. The adrenal glands and kidneys are unremarkable. Abdominal aorta is normal in course and caliber without aneurysm. There is no free air. There is no retroperitoneal adenopathy. Pelvis: There is contrast throughout the colon and rectum. There is questionable thickening of the distal sigmoid colon. There is no evidence of a fistula. Urinary bladder is unremarkable. There is no free fluid. Appendix is not clearly seen. Uterus is normal in size. Skeleton: There are no acute osseous findings. No suspicious bony lesions. IMPRESSION: No evidence of fistula. Questionable mild thickening of the distal sigmoid colon.
[2018-05-09] MEDS ORDERED: PREDNISONE 20 MG TABLET PO ONE (02:06)
--- NOTE | 2018-05-09 02:10 | ER Document Report ---
ED General - General Chief Complaint: Other Stated Complaint: ABDOMINAL PAIN Time Seen by Provider: 05/08/18 19:55 Primary Care Provider: ARIANA HERRERA MD [ACTIVE STAFF] - 05/09/18 (call office this morning to make a close follow up appointment) Notes: Patient is a 30-year-old female presents with complaint of noticing some stool going into the vaginal vault. Says is been ongoing for 2 months but is gradually worsened over time. She has told her primary care doctor who told her to follow-up with her GI physician. Her GI physician for her Crohn's disease is Dr. Herrera. She says she has not called him to make an appointment. She therefore came to the ER. No fevers. No vomiting. Some mild lower crampy abdominal pain. No blood in her stool. No other complaints at this time. No previous history of fistula. TRAVEL OUTSIDE OF THE [place] IN LAST 30 DAYS: No - Related Data Allergies/Adverse Reactions: amoxicillin trihydrate [From Augmentin] Allergy (Intermediate, Verified 05/08/18 17:51) Hives aspirin [Aspirin] Allergy (Intermediate, Verified 05/08/18 17:51) DOESN'T TAKE BC OF CROHN'S Potassium Clavulanate * [From Augmentin] Allergy (Intermediate, Verified 05/08/18 17:51) Hives sulfamethoxazole [From Septra] Allergy (Intermediate, Verified 05/08/18 17:51) NAUSEA,VOMITING, HIVES trimethoprim [From Septra] Allergy (Intermediate, Verified 05/08/18 17:51) NAUSEA, VOMITING, HIVES sertraline HCl [From Zoloft] Allergy (Verified 05/08/18 17:51) UNKNOWN POWDER IN GLOVES Adverse Reaction (Intermediate, Uncoded 06/29/17 14:04) RASH Past Medical History - Social History Smoking Status: Current Every Day Smoker Frequency of alcohol use: None Drug Abuse: None Family History: Reviewed & Not Pertinent, Arthritis, CAD, CVA, DM, Hyperlipidemia, Hypertension, Malignancy, Thyroid Disfunction Patient has suicidal ideation: No Patient has homicidal ideation: No Pulmonary Medical History: Reports: Hx Asthma - FLARE UPS IN WINTER, Hx Bronchitis - FLARE UPS IN WINTER, Hx Pneumonia Neurological Medical History: Reports: Hx Migraine, Hx Seizures - ? Endocrine Medical History: Reports: Hx Hypothyroidism Renal/ Medical History: Denies: Hx Peritoneal Dialysis GI Medical History: Reports: Hx Crohn's Disease, Hx Gastroesophageal Reflux Disease Musculoskeletal Medical History: Reports Hx Arthritis - OLIVER HANDS, Reports Hx Fibromyalgia Psychiatric Medical History: Reports: Hx Anxiety, Hx Depression Past Surgical History: Reports: Hx Appendectomy, Hx Orthopedic Surgery - rt shoulder, right knee surgery, Hx Thyroid Surgery - Thyroidectomy, Hx Tonsillectomy - Immunizations Immunizations up to date: Yes Hx Diphtheria, Pertussis, Tetanus Vaccination: Yes - 2012 Review of Systems - Review of Systems Notes: My Normal Review Basic REVIEW OF SYSTEMS: CONSTITUTIONAL : Denies fever, chills, or sweats. Denies recent illness. RESPIRATORY: Denies cough, cold, or chest congestion. Denies shortness of breath, difficulty breathing, or wheezing. GASTROINTESTINAL: Some abdominal pain. History of Crohn's disease. GENITOURINARY: Denies difficulty urinating, painful urination, burning, frequency, or blood in urine. FEMALE GENITOURINARY: Some stool in vaginal vault. MUSCULOSKELETAL: Denies neck or back pain or joint pain or swelling. SKIN: Denies rash or skin lesions. NEUROLOGICAL: Denies altered mental status or loss of consciousness. Denies headache. Denies weakness or paralysis or loss of use of either side. Denies problems with gait or speech. Denies sensory or motor loss. ALL OTHER SYSTEMS REVIEWED AND NEGATIVE. Physical Exam - Vital signs Vitals: Temp Pulse Resp BP Pulse Ox 98.3 F 65 16 114/76 100 05/08/18 21:18 05/08/18 21:18 05/08/18 21:18 05/08/18 21:18 05/08/18 21:18 - Notes Notes: General Appearance: Well nourished, alert, cooperative, no acute distress, no obvious discomfort. Vitals: reviewed, See vital signs table. Eyes: PERRL, EOMI, Conjuctiva clear Lungs: No wheezing, No rales, No rhonci, No accessory muscle use, good air exchange bilaterally. Heart: Normal rate, Regular rythm, No murmur, no rub Abdomen: Normal BS, soft, No rigidity, mild suprapubic abdominal tenderness to palpation., No guarding, no rebound, no abdominal masses, no organomegaly Pelvic exam: Speculum exam performed with female desizing pad operator, Nimisha Benavides RN, at bedside. No blood in vaginal vault. No stool seen vaginal vault. No abnormal discharge. Extremities: good pulses in all extremities, no swelling or tenderness in the extremities, no edema. Skin: warm, dry, appropriate color, no rash Neuro: speech clear, oriented x 3, normal affect, responds appropriately to questions. Course - Re-evaluation Re-evalutation: 05/09/18 02:09 Patient's pelvic exam I did not see any stool in the vaginal vault. Her CT scan does not show evidence of a fistula at this time. This does not completely rule out a fistula. I informed the patient that based on her history I suspect she probably does have a small fistula that has formed. I informed her that she is very important she follows up closely with her GI physician. Currently she has no fevers no leukocytosis and no involved. She currently looks very well and has normal vital signs. I feel she safe to be discharged home. We will place her on a tapering dose of prednisone. I informed her that she must follow-up closely with her GI physician, Dr. Herrera. I encouraged her return to ER immediately if she has blood in her stool, abdominal pain, fevers, or feels unwell. Patient agrees with plan will be discharged home. Dictation of this chart was performed using voice recognition software; therefore, there may be some unintended grammatical errors. - Vital Signs Vital signs: Temp Pulse Resp BP Pulse Ox 97.3 F 63 16 109/70 100 05/09/18 02:31 05/09/18 02:31 05/08/18 21:18 05/09/18 02:31 05/09/18 02:31 - Laboratory Result Diagrams: 05/08/18 20:35 05/08/18 20:35 Laboratory results interpreted by me: 05/08/18 05/08/18 05/08/18 20:35 20:35 20:35 MCV 98 H MCH 33.8 H Seg Neutrophils % 30.9 L Lymphocytes % 56.6 H Absolute Neutrophils 1.6 L Chloride 108 H Alkaline Phosphatase 36 L Urine Urobilinogen 2.0 H Ur Leukocyte Esterase LARGE H Urine Ascorbic Acid 20 H Discharge - Discharge Clinical Impression: Crohns disease Qualifiers: Gastrointestinal tract location: large intestine Digestive disease complication type: unspecified complication Qualified Code(s): K50.119 - Crohn's disease of l arge intestine with unspecified complications Condition: Good Disposition: HOME, SELF-CARE Additional Instructions: Your CT scan today did not show a fistula. A fistula would be the most likely thing that would be causing some stool going into the vaginal area. I suspect that you probably still do have a fistula but is very small and therefore cannot be seen a CT scan. We will place you on prednisone to help reduce any inflammation in the distal colon. It is very important you follow-up with your GI doctor, Dr. Herrera, for close reevaluation. Please return to ER immediately if you start having fevers, bloody stool, worsening pain, or feel unwell in any way. Prescriptions: RX: Prednisone [Deltasone 10 mg Tablet] 10 mg PO ASDIR PRN #36 tablet PRN Reason: Forms: Return to Work Referrals: ARIANA HERRERA MD [ACTIVE STAFF] - 05/09/18 (call office this morning to make a close follow up appointment)
[2018-05-09 02:50] VITALS: BP 109/70
== END 2018-05-09 02:50 | disposition home or self-care (01) ==
LOC: ER 17:36
DX: K50.119 Crohn's disease of large intestine with unspecified complications (principal); R10.30 Lower abdominal pain, unspecified; F17.200 Nicotine dependence, unspecified, uncomplicated; E03.9 Hypothyroidism, unspecified; Z88.0 Allergy status to penicillin; Z88.6 Allergy status to analgesic agent; Z88.3 Allergy status to other anti-infective agents
CPT/HCPCS: 99284; 96361; 96374; 96375; 36415; 83690; 85025; 81025; 80053; 81001; 74177; J3010; J2765; J7512; J7030

== ENCOUNTER 2019-01-11 09:15 | Emergency (ER) | payer MEDICAID ==
[2019-01-11] MEDS ORDERED: NORMAL SALINE 1000 ML 1,000 ML IV ONE (10:37)
[2019-01-11 11:23] LABS: APPEARANCE,URINE CLEAR; BILIRUBIN,URINE NEGATIVE (NEGATIVE); COLOR,URINE STRAW; GLUCOSE, URINE NEGATIVE (NEGATIVE); KETONES,URINE NEGATIVE (NEGATIVE); LEUKOCYTE ESTERASE,URINE NEGATIVE (NEGATIVE); NITRITE,URINE NEGATIVE (NEGATIVE); PROTEIN,URINE NEGATIVE (NEGATIVE); URINE SPECIFIC GRAVITY 1.003; UROBILINOGEN,URINE NEGATIVE mg/dL (<2.0)
[2019-01-11 11:24] LABS: ABSOLUTE LYMPHOCYTES (AUTO) 1.7 10^3/uL (0.5-4.7); ABSOLUTE MONOCYTES (AUTO) 0.5 10^3/uL (0.1-1.4); ABSOLUTE NEUT (AUTO) 1.3 10^3/uL (1.7-8.2); BASOPHILS % (AUTO) 1.2 % (0-2); EOSINOPHILS % (AUTO) 0.7 % (0-6); HEMATOCRIT 42.9 % (36.0-47.0); HEMOGLOBIN 14.5 g/dL (12.0-15.5); LYMPHOCYTES % (AUTO) 48.2 % (13-45); MEAN CORPUSCULAR HEMOGLOBIN 33.6 pg (27.0-33.4); MEAN CORPUSCULAR HGB CONC 33.9 g/dL (32.0-36.0); MEAN CORPUSCULAR VOLUME 99 fl (80-97); MONOCYTES % (AUTO) 12.7 % (3-13); PLATELET COUNT 216 10^3/uL (150-450); RED BLOOD COUNT 4.32 10^6/uL (3.72-5.28); RED CELL DISTRIBUTION WIDTH 13.7 % (11.5-14.0); SEGMENTED NEUTROPHILS % (AUTO) 37.2 % (42-78); TOTAL CELLS COUNTED % (AUTO) 100 %; WHITE BLOOD COUNT 3.6 10^3/uL (4.0-10.5)
[2019-01-11] MEDS ORDERED: HYDROCODONE/ACETAMINOPHEN 5-325 MG TABLET PO ONE (11:27)
[2019-01-11 11:43] LABS: ALKALINE PHOSPHATASE 36 U/L (38-126); ANION GAP 7 (5-19); ASPARTATE AMINO TRANSFERASE 32 U/L (14-36); BILIRUBIN,DIRECT 0.1 mg/dL (0.0-0.4); BILIRUBIN,TOTAL 0.7 mg/dL (0.2-1.3); BLOOD UREA NITROGEN 11 mg/dL (7-20); CALCIUM 8.6 mg/dL (8.4-10.2); CARBON DIOXIDE 23 mmol/L (22-30); CHLORIDE 111 mmol/L (98-107)
[2019-01-11 11:45] LABS: URINE AMPHETAMINES SCREEN NEGATIVE; URINE BARBITURATES SCREEN NEGATIVE; URINE BENZODIAZEPINES SCREEN NEGATIVE; URINE COCAINE SCREEN NEGATIVE; URINE MARIJUANA (THC) SCREEN NEGATIVE; URINE METHADONE SCREEN NEGATIVE; URINE PHENCYCLIDINE SCREEN NEGATIVE
[2019-01-11 11:47] LABS: ALCOHOL < 10 mg/dL (NONE DETECTED)
[2019-01-11 11:48] LABS: GLUCOSE 68 mg/dL (75-110)
[2019-01-11 14:09] VITALS: BP 122/60
--- NOTE | 2019-01-12 12:13 | ER Document Report ---
Entered by WHITLEY BREWER SCRIBE 01/11/19 1037 Acting as scribe for:RODOLFO CASTRO IV, MD ED Seizure - General Chief Complaint: Probable Seizure Stated Complaint: POSSIBLE SEIZURE Time Seen by Provider: 01/11/19 10:18 Information source: Patient Notes: This 38-year-old female patient presents to the emergency department today for a seizure just prior to arrival. Patient reports a history of seizures, on Topamax twice daily despite a negative EEG. Patient states that she was sitting down and drinking coffee with her when she began to "feel funny". states that the patient's right upper extremity began to shake and then he describes tonic-clonic movements. The seizure lasted for approximately 60 seconds and the patient was postictal for approximately 60 seconds according to family. Patient now complains of generalized myalgias. Patient does not have any tongue biting or incontinence during this seizure. Pertinent PMHx/PSHx: Reports a history of seizures despite negative EEG, on Topamax. Additional history as recorded. Neurologist: Doctor Kadeem John ([facility]) - Related Data Allergies/Adverse Reactions: amoxicillin trihydrate [From Augmentin] Allergy (Intermediate, Verified 01/11/19 09:36) Hives aspirin [Aspirin] Allergy (Intermediate, Verified 01/11/19 09:36) DOESN'T TAKE BC OF CROHN'S Potassium Clavulanate * [From Augmentin] Allergy (Intermediate, Verified 01/11/19 09:36) Hives sulfamethoxazole [From Septra] Allergy (Intermediate, Verified 01/11/19 09:36) NAUSEA,VOMITING, HIVES trimethoprim [From Septra] Allergy (Intermediate, Verified 01/11/19 09:36) NAUSEA, VOMITING, HIVES sertraline HCl [From Zoloft] Allergy (Verified 01/11/19 09:36) UNKNOWN POWDER IN GLOVES Adverse Reaction (Intermediate, Uncoded 01/11/19 09:36) RASH Home Medications: gabapentin. trazodone. melatonin. synthroid. apriso. meloxicam. topiramite. cyclobenzaprine. pantoprazole sodium. cryselle. metformin. prazosin. modafinil. pregbalin. cymbalta. zyrtec. cetirizine. prednisione. ventolin. chantix. kevzara. nystatin. pregabalin Past Medical History - General Information source: Patient, [facility] Records - Social History Smoking Status: Current Every Day Smoker Cigarette use (# per day): Yes Chew tobacco use (# tins/day): No Frequency of alcohol use: None Drug Abuse: None Lives with: Family Family History: Reviewed & Not Pertinent, Arthritis, CAD, CVA, DM, Hyperlipidemia, Hypertension, Malignancy, Thyroid Disfunction Patient has suicidal ideation: No Patient has homicidal ideation: No Pulmonary Medical History: Reports: Hx Asthma - FLARE UPS IN WINTER, Hx Bronchitis - FLARE UPS IN WINTER, Hx Pneumonia Neurological Medical History: Reports: Hx Migraine, Hx Seizures - Reports a history of seizures, on Topamax, negative EEG Endocrine Medical History: Reports: Hx Hypothyroidism GI Medical History: Reports: Hx Crohn's Disease, Hx Gastroesophageal Reflux Disease Musculoskeletal Medical History: Reports Hx Arthritis - OLIVER HANDS, Reports Hx Fibromyalgia Psychiatric Medical History: Reports: Hx Anxiety, Hx Depression Past Surgical History: Reports: Hx Appendectomy, Hx Orthopedic Surgery - rt shoulder, right knee surgery, Hx Thyroid Surgery - Thyroidectomy, Hx Tonsillec rigo - Immunizations Immunizations up to date: Yes Hx Diphtheria, Pertussis, Tetanus Vaccination: Yes - 2012 Review of Systems - Review of Systems Constitutional: denies: Fever EENT: No symptoms reported Cardiovascular: No symptoms reported Respiratory: No symptoms reported Gastrointestinal: No symptoms reported Genitourinary: No symptoms reported Female Genitourinary: No symptoms reported Musculoskeletal: See HPI, Muscle pain Skin: No symptoms reported Hematologic/Lymphatic: No symptoms reported Neurological/Psychological: See HPI, Seizure -: Yes All other systems reviewed and negative Physical Exam - Vital signs Vitals: Temp Pulse Resp BP Pulse Ox 98.0 F 87 20 120/57 L 100 01/11/19 09:18 01/11/19 09:18 01/11/19 09:18 01/11/19 09:18 01/11/19 09:18 - Notes Notes: Physical Exam: General: Alert, appears well. HEENT: Normocephalic. Atraumatic. PERRL. Extraocular movements intact. Oropharynx clear. There are no bite jessica or dried blood around mouth or tongue. Neck: Supple. Non-tender. Respiratory: No respiratory distress. Clear and equal breath sounds bilaterally. Cardiovascular: Regular rate and rhythm. Abdominal: Normal Inspection. Non-tender. No distension. Normal Bowel Sounds. Back: No gross abnormalities. Extremities: Moves all four extremities. Upper extremities: Normal inspection. Normal ROM. Lower extremities: Normal inspection. No edema. Normal ROM. Neurological: Normal cognition. AAOx4. Normal speech. Psychological: Normal affect. Normal Mood. Skin: Warm. Dry. Normal color. Course - Re-evaluation Re-evalutation: 01/11/19 11:52 Call placed to [facility], where Dr. John practices, they state he is not on-call for neurology and they have no one continuous improvement coordinator for neurology. 01/11/19 12:12 Patient is alert and oriented x3. Patient is tolerating p.o. Patient states that she has some issues with her blood sugar that she is supposed to see an callisthenics instructor for next month. Patient states that she does take Victoza and insulin but does not skip meals. Results of medical screening exam discussed with patient and patient's significant other all questions were answered. Seizure precautions including not driving or operating machinery discussed with patient. Patient states she "understands the warnings" associated with seizure problems. - Vital Signs Vital signs: Temp Pulse Resp BP Pulse Ox 98.0 F 87 20 120/57 L 100 01/11/19 09:18 01/11/19 09:18 01/11/19 09:18 01/11/19 09:18 01/11/19 09:18 - Laboratory Result Diagrams: 01/11/19 11:00 01/11/19 11:00 Laboratory results interpreted by me: 01/11/19 01/11/19 11:00 11:00 WBC 3.6 L MCV 99 H MCH 33.6 H Lymph % (Auto) 48.2 H Absolute Neuts (auto) 1.3 L Seg Neutrophils % 37.2 L Chloride 111 H Glucose 68 L Alkaline Phosphatase 36 L Discharge - Discharge Clinical Impression: Seizure disorder, Hypoglycemia Condition: Good Disposition: HOME, SELF-CARE Additional Instructions: Follow-up with your neurologist on 01/12/2019. Follow-up with your callisthenics instructor as scheduled. Do not drive or operate machinery until cleared to do so by your neurologist. Call 911 if you have any return or worsening of symptoms. Return to the Emergency Department without delay if any worse. Seizure, Known Epileptic You have had a seizure. Seizures may "break through" in an epileptic due to stress of infection or injury, a change in blood chemistry, or drug and alcohol use. Another common cause is failure to take medication as prescribed. Your doctor has evaluated your situation for the likely cause of this seizure. It is important that you follow his advice concerning any medication changes and follow-up care. Further testing of anti-seizure medication levels in your blood may be necessary. If you have a driver/guide's license, it's important that you DO NOT DRIVE until given permission by your physician. This seizure must be reported to the driver/guide's license bureau. Call the doctor or return if seizures recur, or if new or unusual symptoms arise -- such as severe headache, confusion, excessive sleepiness, local weakness or numbness, neck stiffness, or fever. Hypoglycemia You have suffered an episode of hypoglycemia (low blood sugar). Typical symptoms of hypoglycemia are shaking, sweating, headache, and confusion. When severe, unconsciousness or seizure may occur. Hypoglycemia occurs when a person taking insulin or diabetes pills has a change in the amount of blood sugar available -- due to exercise, decreased food intake, or alcohol. Should you feel symptoms of hypoglycemia again, immediately take some form of sugar such as sweetened juice. As the reaction subsides, eat a complex carbohydrate such as bread. If possible, check your blood sugar using a chemical strip. If episodes are occurring without obvious explanation, contact your physician for further evaluation. HOME CARE INSTRUCTIONS & INFORMATION: Thank you for choosing us for your medical needs. We hope you're satisfied with the care you received. After you leave, you must properly care for your problem and, at the same time, observe its progress. Any condition can change. Some illnesses can change rapidly over hours or days. If your condition worsens, return to the Emergency Department or see your physician promptly. ABOUT YOUR X-RAYS AND EKG'S: If you had an EKG or X-rays taken, they have been read by the Emergency Physician. The X-rays and EKG's will also be read by a Radiologist or Botany Technician within 24 hours. If discrepancies are noted, you will be notified by telephone. Please be certain the ED has a correct telephone number & address where you can be reached. Also, realize that some fractures or abnormalities do not show up on initial X-rays. If your symptoms continue, see your physician. ABOUT YOUR LABORATORY TEST: If you had laboratory tests, the results have been reviewed by the Emergency Physician. Some test results (for example cultures) may not be available for several days. You will be contacted if any test result shows you need additional treatment. Please be certain the ED has a correct telephone number and address where you can be reached. ABOUT YOUR MEDICATIONS: You will receive instructions on how to take your medicine on the prescription label you receive. Additional information may be provided by the Pharmacy. If you have questions afterwards, call the ED for clarification or further instructions. Some prescribed medications may cause drowsiness. Do not perform tasks such as driving a car or operating machinery without consulting your Pharmacist. If you feel you need a refill of pain medication, your condition will need re-evaluation. Please do not call for a refill of any medication. ABOUT YOUR SIGNATURE: Signature of this document acknowledges to followin. Understanding that you received emergency treatment and that you may be released before al medical problems are known or treated. Please be certain the ED has a correct phone number & address where you can be reached. 2. Acknowledgement that you will arrange for follow-up care as recommended. 3. Authorization for the Emergency Physician to provide information to your follow-up Physician in order to maximize your care. AT ANY TIME, IF YOUR SYMPTOMS CHANGE SIGNIFICANTLY OR WORSEN OR YOU DEVELOP NEW SYMPTOMS, RETURN TO THE EMERGENCY DEPARTMENT IMMEDIATELY FOR RE-EVALUATION. OUR GOAL IS TO PROVIDE EXCELLENT MEDICAL CARE! WE HOPE THAT WE HAVE MET YOUR EXPECTATIONS DURING YOUR EMERGENCY DEPARTMENT VISIT AND THAT YOU FEEL YOU HAVE RECEIVED EXCELLENT CARE! I personally performed the services described in the documentation, reviewed and edited the documentation which was dictated to the scribe in my presence, and it accurately records my words and actions.
== END 2019-01-11 14:00 | disposition home or self-care (01) ==
LOC: ER 09:15
DX: G40.909 Epilepsy, unspecified, not intractable, without status epilepticus (principal); R73.9 Hyperglycemia, unspecified; M79.10 Myalgia, unspecified site; F17.200 Nicotine dependence, unspecified, uncomplicated; Z79.899 Other long term (current) drug therapy; J45.909 Unspecified asthma, uncomplicated
CPT/HCPCS: 99284; 96360; 36415; 80307 ×2; 85025; 81025; 80053; 81001; J7030

== ENCOUNTER → 2019-08-26 | Outpatient (CLI) | payer MEDICAID ==
--- NOTE | 2019-08-26 13:45 | RADIOLOGY REPORT (SQ) ---
EXAM DESCRIPTION: MRI RT LOWER JOINT WITHOUT IMAGES COMPLETED DATE/TIME: 08/26/2019 1:12 pm REASON FOR STUDY: M23.91 UNSPECIFIED INTERNAL DERANGEMENT OF RIGHT KNEE M23.92 UNSPECIFIED INTERNAL DERANGEMENT OF LEFT KNEE M23.91 UNSPECIFIED INTERNAL DERANGEMENT OF RIGHT KNEE COMPARISON: None. TECHNIQUE: Rightknee images acquired and stored on PACS. Multiplanar images include fat sensitive s equences as T1, water sensitive sequences as FST2 or STIR, cartilage sensitive sequences as FSPD, and gradient echo sequences. LIMITATIONS: None. FINDINGS: JOINT AND BURSAE: Trace effusion. BONE CORTEX AND MARROW: No alteration of signal to suggest marrow replacement. No worrisome bone lesi ons. No occult fracture. ACL: Intact. No degeneration or ganglion cyst. PCL: Intact. MCL: Intact. No periligamentous edema or fluid. LCL: Intact. No periligamentous edema or fluid. MEDIAL MENISCUS: No tears. No abnormal signal. LATERAL MENISCUS: No tears. No abnormal signal. MEDIAL COMPARTMENT: Cartilage preserved. No bone bruises or reactive marrow edema. No osteophytes. LATERAL COMPARTMENT: Cartilage preserved. No bone bruises or reactive marrow edema. No osteophytes. PATELLA: Normal location. Chondromalacia noted particularly near the apex. Areas of irregular fissu ring without subchondral cysts here. There is more focal loss along the medial femoral trochlea with subchondral edema, grade 4 loss suggested. EXTENSOR MECHANISM: Intact. Quadriceps and patella tendons normal. SOFT TISSUES: Adjacent muscles and subcutaneous tissues normal. Normal flow void in popliteal artery and vein. OTHER: No other significant finding. IMPRESSION: RIGHT knee MRI: 1. Patellofemoral chondromalacia. 2. Other articular surfaces appear to be intact. No overt cruciate or collateral ligament pathology or meniscus tear detected. TECHNICAL DOCUMENTATION: JOB ID: [id number] 2010 [employer]- All Rights Reserved Reading location - IP/workstation name: [email or web address]
--- NOTE | 2019-08-26 13:47 | RADIOLOGY REPORT (SQ) ---
EXAM DESCRIPTION: MRI LT LOWER JOINT WITHOUT IMAGES COMPLETED DATE/TIME: 08/26/2019 1:12 pm REASON FOR STUDY: M23.92 UNSPECIFIED INTERNAL DERANGEMENT OF LEFT KNEE M23.92 UNSPECIFIED INTERNAL DERANGEMENT OF LEFT KNEE M23.91 UNSPECIFIED INTERNAL DERANGEMENT OF RIGHT KNEE COMPARISON: None. TECHNIQUE: Leftknee images acquired and stored on PACS. Multiplanar images include fat sensitive se quences as T1, water sensitive sequences as FST2 or STIR, cartilage sensitive sequences as FSPD, and gradient echo sequences. LIMITATIONS: None. FINDINGS: JOINT AND BURSAE: Small effusion. BONE CORTEX AND MARROW: No alteration of signal to suggest marrow replacement. No worrisome bone lesi ons. No occult fracture. ACL: Intact. No degeneration or ganglion cyst. PCL: Intact. MCL: Intact. No periligamentous edema or fluid. LCL: Intact. No periligamentous edema or fluid. MEDIAL MENISCUS: No tears. No abnormal signal. LATERAL MENISCUS: No tears. No abnormal signal. MEDIAL COMPARTMENT: Cartilage preserved. No bone bruises or reactive marrow edema. No osteophytes. LATERAL COMPARTMENT: Cartilage preserved. No bone bruises or reactive marrow edema. No osteophytes. PATELLA: Irregular apical chondromalacia, fissuring with mild subchondral edema. Central trochlear f ocal chondral loss with mild subchondral edema also. EXTENSOR MECHANISM: Intact. Quadriceps and patella tendons normal. SOFT TISSUES: Adjacent muscles and subcutaneous tissues normal. Normal flow void in popliteal artery and vein. OTHER: No other significant finding. IMPRESSION: LEFT KNEE MRI: 1. Patellofemoral chondromalacia. 2. Other articular surfaces look relatively intact. No cruciate or collateral ligament injury or men iscus tear detected. TECHNICAL DOCUMENTATION: JOB ID: [id number] 2010 [employer]- All Rights Reserved Reading location - IP/workstation name: [email or web address] [email or web address] [email or web address]
== END ==
LOC: RAD 11:48
PROVIDERS: ATTEND Orthopaedic Surgery
DX: M23.92 Unspecified internal derangement of left knee (principal); M22.42 Chondromalacia patellae, left knee; M22.41 Chondromalacia patellae, right knee

== ENCOUNTER 2019-11-29 20:16 | Emergency (ER) | payer MEDICAID ==
[2019-11-29] MEDS ORDERED: MORPHINE SULFATE 10 MG/ML INJ IV ONE (20:47)
[2019-11-29] MEDS ORDERED: ONDANSETRON HCL INJ/PF 4 MG/2 ML SDV IV ONE ×2 (20:47→22:07)
[2019-11-29] MEDS ORDERED: RINGERS SOLUTION,LACTATED 1,000 ML IV ONE (20:47)
--- NOTE | 2019-11-29 20:49 | ER Document Report ---
ED Medical Screen (RME) - General Chief Complaint: Back Pain Stated Complaint: BACK AND FLANK PAIN Time Seen by Provider: 11/29/19 20:41 Primary Care Provider: PABLO VAZQUEZ JR, [Primary Care Provider] - Follow up as needed Mode of Arrival: Ambulatory Information source: Patient Notes: HPI; 39-year-old female presents to the emergency room complaining of lower abdominal and bilateral flank pain for the past 2 days. Describes it as a sharp stabbing pain. Complains of dysuria and frequency. History of frequent UTIs. Denies any vaginal discharge. Denies . States she has been taking oxycodone which she takes for her chronic back and knee pain without relief. PE: Alert and oriented x3. Moderate distress noted. Lungs: Clear to auscultation w ithout rales, rhonchi, wheezes. Heart: Regular rate rhythm without murmurs, rubs, gallops. Positive bilateral CVA tenderness. I have greeted and performed a rapid initial assessment of this patient. A comprehensive ED assessment and evaluation of the patient, analysis of test results and completion of the medical decision making process will be conducted by additional ED providers. I have specifically instructed the patient or family members with the patient to immediately return to any nursing staff should anything change in the patient's condition or with their chief complaint. TRAVEL OUTSIDE OF THE [place] IN LAST 30 DAYS: No - Related Data Allergies/Adverse Reactions: amoxicillin trihydrate [From Augmentin] Allergy (Intermediate, Verified 01/11/19 09:36) Hives aspirin [Aspirin] Allergy (Intermediate, Verified 01/11/19 09:36) DOESN'T TAKE BC OF CROHN'S Potassium Clavulanate * [From Augmentin] Allergy (Intermediate, Verified 01/11/19 09:36) Hives sulfamethoxazole [From Septra] Allergy (Intermediate, Verified 01/11/19 09:36) NAUSEA,VOMITING, HIVES trimethoprim [From Septra] Allergy (Intermediate, Verified 01/11/19 09:36) NAUSEA, VOMITING, HIVES sertraline HCl [From Zoloft] Allergy (Verified 01/11/19 09:36) UNKNOWN POWDER IN GLOVES Adverse Reaction (Intermediate, Uncoded 01/11/19 09:36) RASH Past Medical History Pulmonary Medical History: Reports: Hx Asthma - FLARE UPS IN WINTER, Hx Bronchitis - FLARE UPS IN WINTER, Hx Pneumonia Neurological Medical History: Reports: Hx Migraine, Hx Seizures - Reports a history of seizures, on Topamax, negative EEG Endocrine Medical History: Reports: Hx Hypothyroidism Renal/ Medical History: Denies: Hx Peritoneal Dialysis GI Medical History: Reports: Hx Crohn's Disease, Hx Gastroesophageal Reflux Disease Musculoskeltal Medical History: Reports Hx Arthritis - OLIVER HANDS, Reports Hx Fibromyalgia Psychiatric Medical History: Reports: Hx Anxiety, Hx Depression Past Surgical History: Reports: Hx Appendectomy, Hx Orthopedic Surgery - rt shoulder, right knee surgery, Hx Thyroid Surgery - Thyroidectomy, Hx Tonsillectomy - Immunizations Immunizations up to date: Yes Hx Diphtheria, Pertussis, Tetanus Vaccination: Yes - 2012 Physical Exam - Vital signs Vitals: Temp Pulse Resp BP Pulse Ox 98.8 F 90 16 124/106 H 99 11/29/19 20:42 11/29/19 20:42 11/29/19 20:42 11/29/19 20:42 11/29/19 20:42 Course - Vital Signs Vital signs: Temp Pulse Resp BP Pulse Ox 98.8 F 90 16 124/106 H 99 11/29/19 20:42 11/29/19 20:42 11/29/19 20:42 11/29/19 20:42 11/29/19 20:42 Doctor's Discharge - Discharge Referrals: PABLO VAZQUEZ JR, DO [Primary Care Provider] - Follow up as needed
[2019-11-29 21:22] LABS: ABSOLUTE EOSINOPHILS # (AUTO) 0.1 10^3/uL (0.0-0.6); ABSOLUTE LYMPHOCYTES (AUTO) 3.2 10^3/uL (0.5-4.7); ABSOLUTE MONOCYTES (AUTO) 0.8 10^3/uL (0.1-1.4); ABSOLUTE NEUT (AUTO) 2.8 10^3/uL (1.7-8.2); BASOPHILS % (AUTO) 0.6 % (0-2); EOSINOPHILS % (AUTO) 0.8 % (0-6); HEMOGLOBIN 13.7 g/dL (12.0-15.5); LYMPHOCYTES % (AUTO) 46.3 % (13-45); MEAN CORPUSCULAR HEMOGLOBIN 32.7 pg (27.0-33.4); MEAN CORPUSCULAR HGB CONC 34.1 g/dL (32.0-36.0); MEAN CORPUSCULAR VOLUME 96 fl (80-97); MONOCYTES % (AUTO) 11.5 % (3-13); PLATELET COUNT 266 10^3/uL (150-450); RED BLOOD COUNT 4.18 10^6/uL (3.72-5.28); RED CELL DISTRIBUTION WIDTH 13.7 % (11.5-14.0); SEGMENTED NEUTROPHILS % (AUTO) 40.8 % (42-78); TOTAL CELLS COUNTED % (AUTO) 100 %; WHITE BLOOD COUNT 6.9 10^3/uL (4.0-10.5)
[2019-11-29 21:56] LABS: ALKALINE PHOSPHATASE 39 U/L (38-126); ANION GAP 9 (5-19); ASPARTATE AMINO TRANSFERASE 25 U/L (14-36); BILIRUBIN,DIRECT 0.3 mg/dL (0.0-0.4); BILIRUBIN,TOTAL 0.6 mg/dL (0.2-1.3); BLOOD UREA NITROGEN 18 mg/dL (7-20); CALCIUM 8.6 mg/dL (8.4-10.2); CARBON DIOXIDE 21 mmol/L (22-30); CHLORIDE 109 mmol/L (98-107); GLUCOSE 86 mg/dL (75-110); TOTAL PROTEIN 6.9 g/dL (6.3-8.2)
[2019-11-29] MEDS ORDERED: HYDROMORPHONE HCL INJ/PF 2 MG/ML AMPULE IV ONE (22:07)
--- NOTE | 2019-11-29 22:14 | ER Document Report ---
ED General - General Chief Complaint: Flank Pain Stated Complaint: BACK AND FLANK PAIN Time Seen by Provider: 11/29/19 20:41 Primary Care Provider: PABLO VAZQUEZ JR, DO [Primary Care Provider] - Follow up as needed Mode of Arrival: Ambulatory Information source: Patient Notes: 39-year-old female with history of 2 days of bilateral flank pain left greater than right and suprapubic discomfort. History of UTIs in the past. Feels worse than that. No fevers or shaking chills. She has nausea without vomiting. TRAVEL OUTSIDE OF THE [place] IN LAST 30 DAYS: No - Related Data Allergies/Adverse Reactions: amoxicillin trihydrate [From Augmentin] Allergy (Intermediate, Verified 01/11/19 09:36) Hives aspirin [Aspirin] Allergy (Intermediate, Verified 01/11/19 09:36) DOESN'T TAKE BC OF CROHN'S Potassium Clavulanate * [From Augmentin] Allergy (Intermediate, Verified 01/11/19 09:36) Hives sulfamethoxazole [From Septra] Allergy (Intermediate, Verified 01/11/19 09:36) NAUSEA,VOMITING, HIVES trimethoprim [From Septra] Allergy (Intermediate, Verified 01/11/19 09:36) NAUSEA, VOMITING, HIVES sertraline HCl [From Zoloft] Allergy (Verified 01/11/19 09:36) UNKNOWN POWDER IN GLOVES Adverse Reaction (Intermediate, Uncoded 01/11/19 09:36) RASH Home Medications: oxycodone Past Medical History - General Information source: Patient - Social History Smoking Status: Unknown if Ever Smoked Family History: Reviewed & Not Pertinent, Arthritis, CAD, CVA, DM, Hyperlipidemia, Hypertension, Malignancy, Thyroid Disfunction Patient has homicidal ideation: No Pulmonary Medical History: Reports: Hx Asthma - FLARE UPS IN WINTER, Hx Bronchitis - FLARE UPS IN WINTER, Hx Pneumonia Neurological Medical History: Reports: Hx Migraine, Hx Seizures - Reports a history of seizures, on Topamax, negative EEG Endocrine Medical History: Reports: Hx Hypothyroidism Renal/ Medical History: Denies: Hx Peritoneal Dialysis GI Medical History: Reports: Hx Crohn's Disease, Hx Gastroesophageal Reflux Dis ease Musculoskeletal Medical History: Reports Hx Arthritis - OLIVER HANDS, Reports Hx Fibromyalgia Psychiatric Medical History: Reports: Hx Anxiety, Hx Depression Past Surgical History: Reports: Hx Appendectomy, Hx Orthopedic Surgery - rt shoulder, right knee surgery, Hx Thyroid Surgery - Thyroidectomy, Hx Tonsillectomy - Immunizations Immunizations up to date: Yes Hx Diphtheria, Pertussis, Tetanus Vaccination: Yes - 2012 Review of Systems - Review of Systems Notes: Constitutional: No fevers. No chills. EENT: No eye redness. No eye pain. No ear pain. No sore throat. Cardiovascular: No chest pain. No palpitations. Respiratory: No cough. No shortness of breath. No respiratory distress. Gastrointestinal: No abdominal pain. +Nausea. -vomit. Positive for bilateral flank pain Genitourinary: Atraumatic. No lesions. No pain. No discharge. Musculoskeletal: Atraumatic. No swelling. No deformities. Skin: No rash or lesions. Lymphatic: No swollen lymph nodes. Neurologic: No headache. No syncope. Psychiatric: No suicidal or homicidal ideation. Physical Exam - Vital signs Vitals: Temp Pulse Resp BP Pulse Ox 98.8 F 90 16 124/106 H 99 11/29/19 20:42 11/29/19 20:42 11/29/19 20:42 11/29/19 20:42 11/29/19 20:42 - Notes Notes: General: Well-developed, well-nourished. In no acute distress. Non-toxic appearing. Looks uncomfortable Cardiac: Well-perfused. Regular rate and rhythm. No murmurs, rubs, or gallops. Pulmonary: No respiratory distress. No cyanosis. Bilateral lung garcia are clear to auscultation. Abdominal: Non-distended. Non-rigid. Bowels sounds are present in all four quadrants. No guarding or rebound. Tenderness over the suprapubic region. No guarding or rebound. HEENT: Head is atraumatic. Conjunctivae not reddened. No tearing. PERRL. EOMI. Orbits atraumatic. No periorbital swelling or erythema. Oropharynx is without erythema, swelling, or exudates. Neck: Supple. No adenopathy. No meningismus. Dermatologic: Warm with good turgor. No rash. Atraumatic. Chest: Atraumatic. No chest wall tenderness to palpation. Musculoskeletal: Moves all extremities well. No range of motion deficits. no muscular or joint tenderness. No paraspinal muscle tenderness. no midline spinal tenderness or step-off. Genitourinary: Examination deferred Neurologic: No gross neurologic deficits. Psychiatric: Normal mood. Course - Re-evaluation Re-evalutation: 11/30/19 00:16 Patient has a significant urinary tract infection, but her CT scan is negative. Rocephin given here. Will send her home with a prescription for Keflex 4 times a day for 7 days. Dilley take-home pack for pain. Zofran as needed for nausea - Vital Signs Vital signs: Temp Pulse Resp BP Pulse Ox 98.8 F 72 16 135/70 H 100 11/29/19 20:42 11/29/19 23:36 11/29/19 20:42 11/29/19 23:36 11/29/19 23:36 - Laboratory Result Diagrams: 11/29/19 21:05 11/29/19 21:05 Laboratory results interpreted by me: 11/29/19 11/29/19 11/29/19 21:05 21:05 22:50 Lymph % (Auto) 46.3 H Seg Neutrophils % 40.8 L Chloride 109 H Carbon Dioxide 21 L Urine Protein 100 H Urine Blood LARGE H Urine Nitrite POSITIVE H Ur Leukocyte Esterase LARGE H Discharge - Discharge Clinical Impression: Elevated blood pressure reading Urinary tract infection Qualifiers: Urinary tract infection type: site unspecified Hematuria presence: without hematuria Qualified Code(s): N39.0 - Urinary tract infection, site not specified Condition: Good Disposition: HOME, SELF-CARE Instructions: Cephalexin ([facility]), Oral Narcotic Medication ([facility]), Urinary Tract Infection ([facility]) Additional Instructions: Please follow-up with your primary care physician in 2 days to have your urine rechecked to verify that you are improving. Call antibiotics as directed for full duration. Dilley 1 tab every 6 hours as needed for severe pain only. Zofran as needed for nausea and vomiting Prescriptions: Cephalexin Monohydrate [Keflex 500 mg Capsule] 500 mg PO Q6H 7 Days #28 capsule Referrals: PABLO VAZQUEZ JR, DO [Primary Care Provider] - 12/02/19
[2019-11-29 23:23] LABS: APPEARANCE,URINE CLOUDY; BILIRUBIN,URINE NEGATIVE (NEGATIVE); COLOR,URINE YELLOW; GLUCOSE, URINE NEGATIVE (NEGATIVE); KETONES,URINE NEGATIVE (NEGATIVE); LEUKOCYTE ESTERASE,URINE LARGE (NEGATIVE); NITRITE,URINE POSITIVE (NEGATIVE); PROTEIN,URINE 100 mg/dL (NEGATIVE); URINE SPECIFIC GRAVITY 1.019; UROBILINOGEN,URINE NEGATIVE mg/dL (<2.0)
[2019-11-29] MEDS ORDERED: CEFTRIAXONE 1 GM/D5W RTU 1 GM/50 ML RTUPB IV ONE (23:25)
[2019-11-29 23:58] VITALS: BP 135/70
--- NOTE | 2019-11-30 00:11 | RADIOLOGY REPORT (SQ) ---
EXAM DESCRIPTION: CT ABDOMEN PELVIS WITH IV CONTRAST COMPLETED DATE/TME: 11/29/2019 20:46 CLINICAL HISTORY: 39 years Female abdominal pain COMPARISON: 05/08/2018. TECHNIQUE: Contiguous axial images obtained through the abdomen and pelvis following IV contrast. Reformatted images obtained. This exam was performed according to our department optimization program which includes automated exposure control, adjustment of the mA and/or kv according to patient size and/or use of iterative reconstruction technique. FINDINGS: The liver appears unremarkable. The spleen and pancreas appear unremarkable. No adrenal masses. The kidneys appear unremarkable. No hydronephrosis. The gallbladder is absent. No aneurysmal dilatation of the aorta. No bowel obstruction. The appendix is absent.. No significant free fluid noted. IMPRESSION: No acute abnormality is identified.
[2019-11-30] MEDS ORDERED: ONDANSETRON ODT 4 MG TAB (6 TAB/ER DISP) PO PRN (00:34)
[2019-11-30] MEDS ORDERED: HYDROCODONE/ACETAMINOPHEN 5-325 MG (6 TAB/ER DISP) PO PRN (00:34)
== END 2019-11-30 00:50 | disposition home or self-care (01) ==
LOC: ER 20:16
DX: N39.0 Urinary tract infection, site not specified (principal); R03.0 Elevated blood-pressure reading, without diagnosis of hypertension; R10.9 Unspecified abdominal pain; R11.0 Nausea; J45.909 Unspecified asthma, uncomplicated; Z79.891 Long term (current) use of opiate analgesic; Z88.0 Allergy status to penicillin; Z88.8 Allergy status to other drugs, medicaments and biological substances; Z88.1 Allergy status to other antibiotic agents
CPT/HCPCS: 96376; 99285; 96361; 96375; 96365; 36415; 84703; 85025; 80053; 81001; 74177; J2270; J1170; J2405; J7120; J0696